=== PATIENT | male | born 1970 | race Caucasian/White ===

== ENCOUNTER 2020-03-12 15:20 | Inpatient (IN) | payer MEDICARE, OTHER ==
[~2020-03-12] VITALS: Ht 157.5 cm; Wt 104.0 kg
[2020-03-13] MEDS ORDERED: DOCUSATE SODIUM 100 MG (COLACE) CAP PO PRN (05:00)
[2020-03-13] MEDS ORDERED: BISACODYL 10 MG SUPP (DULCOLAX) PR PRN (05:00)
[2020-03-13] MEDS ORDERED: MELATONIN 3 MG TABLET PO PRN ×2 (05:00→13:00)
[2020-03-13] MEDS ORDERED: CALCIUM CARBONATE 500 MG (TUMS) TAB.CHEW PO PRN (05:00)
[2020-03-13] MEDS ORDERED: diphenhydrAMINE 25 MG TAB (BENADRYL) PO PRN (05:00)
[2020-03-13] MEDS ORDERED: LOPERAMIDE 2 MG (IMODIUM) TABLET PO PRN (05:00)
[2020-03-13] MEDS ORDERED: ACETAMINOPHEN 500 MG TAB (TYLENOL) PO PRN (05:00)
[2020-03-13] MEDS ORDERED: guaiFENesin/CODEINE (ROBITUSSIN AC) 10ML UDC PO PRN (05:00)
[2020-03-13] MEDS ORDERED: LACTULOSE SYRUP 10GM/15ML (ENULOSE) 30ML UDC PO PRN (05:00)
[2020-03-13] MEDS ORDERED: FLEET ENEMA ADULT 1 EA BTL PR PRN (05:00)
--- NOTE | 2020-03-13 05:03 | Progress Note ---
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 He was admitted to [facility] for observation of stroke- like symptoms after feeling off balance with right facial numbness and R extremities. Symptoms started while he moved his head when taking his medication in the morning. He felt like he was leaning towards the right side and having problems with balance. He denied chest pain, bleeding, problems with falling, loss of consciousness, vomiting, diarrhea, fever, and cough. PTT on admission was low at 21.3s. ct scan showed no acute abnormality. Teleneuro consulted recommending stroke pathway and workup for possible metabolic or infectious abnormalities. No nystagmus noted on exam and neurologist recommended josee- hallpike maneuver. MRI and MRA of the brain showed no acute intracranial findings and chronic small infarct of the occipital lobe. Patient started on aspirin 81mg for treatment. He remained hemodynamically stable over night and remained afebrile. 03/12: Mr. Arana is feeling well but still feeling symptoms of dizziness and facial numbness. He is afebrile and hemodynamically stable. Patient became dizzy during physical exam when leaning forward and turn head. Orthostatic testing was done on his left arm with a 10 and 11 bpm increase in pulse from supine to sitting and standing, with stable blood pressure and respiration. dizziness is exacerbated by turning his head and he tries to keep his head straight to avoid symptoms. He veered to the right side during physical therapy when walking. The josee-hallpike maneuver was performed bilaterally with head rotated 30 degrees, eliciting a fast-beating nystagmus starting 5-7 seconds after supine positioning with exacerbation of dizziness. No nystagmus elicited when the test was repeated to the left and patient did not complain of symptoms. US with doppler of the carotid arteries noted bilateral intimal thickening with no evidence of stenosis, unchanged from prior carotid doppler in 2018. Plan on vestibular rehabilitation and jarrett maneuver when the patient is discharged to acute rehab facility. Labs: Glucose 121>>141. cmp and cbc WNL. covid antigen positive on 01/23/2020. ROS Constitutional-No fever, night sweats, fatigue EYE-no blurred vision, double vision ENT-, no difficulty swallowing, no symptoms of oral candidiasis Lungs-no complaint of respiratory distress, no wheezing CV-no chest pain, palpitation GI-no nausea, vomiting, diarrhea, no abdominal pain -no difficulty voiding, no flank pain MS-no significant edema Remainder of 10 point review of system is negative Objective: BP 132/78 (BP Location: Left arm, Patient Position (BP): Sitting) | Pulse 79 | Temp 97.9 F (36.6 C) (Oral) | Resp 18 | Ht 5' 2" (1.575 m) | Wt 110 kg (242 lb 6.4 oz) | SpO2 97% | BMI 44.34 kg/m The range of BP in the last 24 hours is:BP: (110-152)/(61-99) Intake/Output Summary (Last 24 hours) at 03/12/2020 1520 Last data filed at 03/12/2020 0330 Gross per 24 hour Intake Output 850 ml Net -850 ml Physical Exam Lung-ctab Heart-RRR, No Murmur Abd-BS active, non tender Ext-No edema, strength 5/5 throughout Neuro: postural tremor bilaterally more pronounced on the R, mild dysmetria on FTN more pronounced on the R. + babinski sign bilaterally, +3 L4 deep tendon reflexes bilaterally, +2 dtr c5, c6, and S1 bilaterally.. Reviewed All recent data in "lab, imaging, CV and pathology" section All pertinent notes under the "all notes" section. Current orders, adjustments made as appropriate. Telemetry Assessment: Stroke-like symptoms Current Active Hospital Problem List Active Hospital Problems Diagnosis Stroke-like symptoms Immunocompromised patient Type 2 diabetes mellitus with hyperglycemia, without long-term current use of insulin Benign hypertension with CKD (chronic kidney disease) stage III GERD (gastroesophageal reflux disease) History of TIA (transient ischemic attack) and stroke History of renal transplant Seizure disorder Resolved Hospital Problems No resolved problems to display. Plan: Patient presented to ed with right sided facial numbness, right sided leg and arm numbness consistent with a lacunar syndrome without acute findings on imaging. Hx of cerebrovascular accident in 2007 and hx of face paresthesias. Ct head WO contrast: No acute intracranial / cranial process. Old infarcts. No significant change since the previous studies in November. MRI and MRA on 03/12/2020: No acute intracranial findings. Normal MRA of the brain. Chronic small infarct right occipital lobe. Carotid US with doppler on 03/12/2020: Bilateral intimal thickening without evidence of significant stenosis. Antegrade vertebral blood flow. Unchanged from 2018. Recommend 2 year followup if patient remains asymptomatic. PTT was mildly low at 21.3s on 03/10/20. Patient was evaluted by Tele-neuro on admission and recommended stroke pathway most likely TIA/stroke. Continue aspirin 81mg daily. Restart amlodipine 5mg tonight, following period of permissive hypertension. Follow-up with neurology after discharge from rehabilitation facility. Benign paroxysmal positional vertigo Orthostatic testing on 03/12/2020: Increased from 76 bpm supine to 86 and 87 sitting and standing, with slight change in blood pressure from 123/74 to 119/73 and 127/77. The josee-hallpike maneuver elicited symptoms of dizziness and a fast beating nystagmus that started 5-7s after patient was supine. Test was positive with patient turned to the R and not to the L, consistent with his symptoms. Start meclizine three times daily Physical therapy - try jarrett maneuver to relieve patient's symptoms following meclizine. Recommend vestibular rehabilitation when patient is discharged to acute care rehabilitation facility. Follow-up with neurology. Type 2 diabetes mellitus Blood glucose stable between 117 and 141 today Continue sliding scale insulin Immunocompromise secondary to bilateral renal transplant immunosuppresive therapy Continue tacrolimus twice daily Continue prednisone once daily Continue cellcept twice daily Continue folic acid once daily Continue thiamine once daily Continue biotin once daily Continue multivitamin once daily Hypertension Continue lisinopril once daily Continue amlodipine once daily Seizure disorder Continue keppra twice daily Gastroesophageal reflux disease Continue Protonix once daily Depressive psychosis Continue Abilify once daily Continue Fluoxetine 40mg daily The patient was seen by me on03/12/2020t [id number] Thomas R [id number] 13:20 PM DVT Prophylaxis:Scds. 81mg aspirin. Code Status:Full code Disposition: -Expected Time frame:1 day -Expected Discharge to:Acute care rehabilitation facility -Follow up appointments needed:neurology -Discharge needs:Meclizine Complexity of care is high given comorbidities Face to face encounter 25min Coordinating care with patient, family, nursing staff, consults, SW/CM D/W MEDICAL STUDENT ATTESTATION The patient was seen by myself and a student; the students documentation reflects my exam findings as well as my assessment/plan and has been reviewed with changes/additions made as appropriate. Griselda Valdez MD 03/12/2020 JULIETTE FIERRO DO Mar 13, 2020 05:03
[2020-03-13] MEDS ORDERED: ACETAMINOPHEN 325 MG TABLET PO PRN (11:15)
[2020-03-13] MEDS ORDERED: MULT-1136 PO (11:31)
[2020-03-13] MEDS ORDERED: PROM6.2516 PO (11:31)
[2020-03-13] MEDS ORDERED: AMLO10TA4 PO (11:31)
[2020-03-13] MEDS ORDERED: FLUO40CA12 PO (11:31)
[2020-03-13] MEDS ORDERED: MELA1TAB27 PO (11:31)
[2020-03-13] MEDS ORDERED: NF-MYC250C PO ×2 (11:31)
[2020-03-13] MEDS ORDERED: LEVE100015 PO (11:31)
[2020-03-13] MEDS ORDERED: PIOG15TA9 PO (11:31)
[2020-03-13] MEDS ORDERED: THIA100T80 PO (11:31)
[2020-03-13] MEDS ORDERED: PRED5TAB PO (11:31)
[2020-03-13] MEDS ORDERED: TACR1CAP24 PO (11:31)
[2020-03-13] MEDS ORDERED: LISI-552 PO (11:31)
[2020-03-13] MEDS ORDERED: ASPI-1238 PO (11:31)
[2020-03-13] MEDS ORDERED: PANT40TA2 PO (11:31)
[2020-03-13] MEDS ORDERED: ARIP10TA10 PO (11:31)
[2020-03-13] MEDS ORDERED: MECL-149 PO (11:31)
[2020-03-13] MEDS ORDERED: CETI10TA49 PO (11:31)
[2020-03-13] MEDS ORDERED: FLUT9.9S NS (11:34)
[2020-03-13] MEDS ORDERED: CALC600T80 PO (11:41)
--- NOTE | 2020-03-13 11:54 | Physical Therapy Evaluation ---
PT Evaluation-General Medical Diagnosis Admission Date Mar 13, 2020 at 10:46 Medical Diagnosis: neuro deficits Onset Date: Mar 13, 2020 Therapy Diagnosis Therapy Diagnosis: weakness; abn gait Precautions Precautions/Isolations: Seizure, Standard Precautions Referral Physician: Digna Reason for Referral: Evaluation/Treatment Medical History Pertinent Medical History: DM, HTN Additional Medical History legally blind, kidney transplant 2008; hemorrhagic CVA 2007; disabled. Current History Pt admitted to [facility] on 03/11/20 with stroke like symptoms. Transferred to this facility for continued skilled therapy services. Reviewed History: Yes Social History Home: Multilevel Current Living Status: Spouse (and 2 children 19 and 20 y./o) Entry Into Home: Stairs With Railing (4) PT Steps Into Home: 4 PT Steps Inside Home: 12 Other Obstacles: handrail at steps Prior Prior Level of Function SCALE: Activities may be completed with or without assistive devices. 8-Cjnrkcuvcx-dxvlgjg completes the activity by him/herself with no assistance from a helper. 5-Set-up or Clean-up Assistance-helper sets up or cleans up; patient completes activity. [place] assists only prior to or following the activity. 4-Supervision or Touching Assistance-helper provides verbal cues and/or to uching/steadying and/or contact guard assistance as patient completes activity. Assistance may be provided throughout the activity or intermittently. 3-Partial/Moderate Assistance-helper does LESS THAN HALF the effort. [place] lifts, holds or supports trunk or limbs, but provides less than half the effort. 2-Substantial/Maximal Assistance-helper does MORE THAN HALF the effort. [place] lifts or holds trunk or limbs and provides more than half the effort. 7-Zrekigjes-cicjqm does ALL the effort. Patient does none of the effort to complete the activity. Or, the assistance of 2 or more helpers is required for the patient to complete the activity. If activity was not attempted, code reason: 7-Patient Refused. 9-Not Applicable-not attempted and the patient did not perform the activity before the current illness, exacerbation or injury. 10-Not Attempted due to Environmental Limitations-(lack of equipment, weather restraints, etc.). 88-Not Attempted due to Medical Conditions or Safety Concerns. Bed Mobility: 6 Transfers (B,C,W/C): 6 Gait: 6 Stairs: 6 Indoor Mobility (Ambulation): Independent Stairs: Independent pt reports he walks outdoor alot and often walks to his parent's house which is a mile away. indep with self care and mobiltiy; does not drive due to visual deficits. he is on disability and is unable to work. PT Evaluation-Current Subjective Agrees to PT. Reports he would like to get back to walking without an AD. Anxious to get stronger and go home. Reports intermittent dizziness which he reports he was told it was a vestibular issue. Lives at home with his and 2 children. His is a teacher and his kids are in college. His parents live nearby. He reports he is active in congregational activities. Pain Numeric Pain Scale: 0-No Pain Objective Patient Orientation: Person, Place, Time, Situation ROM/Strength ROM Lower Extremities WNL Strength Lower Extremities Grossly 4/5 throghout Integumentary/Posture Integumentary intact Bowel Incontinence: No Bladder Incontinence: No Posture normal and symmetrical Neuromuscular (Tone, Coordination, Reflexes) intact and functional Sensory Vision: Blind Legally Hearing: Functional Hand Dominance: Right Sensation Right Lower Extremit: Intact Sensation Left Lower Extremity: Intact Transfers Roll Left & Right (QC): 4 Sit to Lying (QC): 4 Lying to Sitting/Side of Bed(Q: 4 Sit to Stand (QC): 4 Chair/Spj-mf-Ipvud Xfer(QC): 4 Toilet Transfer (QC): 4 Car Transfer (QC): 4 SBA with all functional tranfers for safety and intermittent cues. Gait Does the Patient Walk?: Yes Mode of Locomotion: Walk Anticipated Mode of Locomotion: Walk Walk 10 feet (QC): 4 Walk 50 ft with 2 Turns(QC): 4 Walk 150 ft (QC): 4 Walking 10ft/uneven surface-QC: 4 Distance: 200 ft; 300 ft Gait Assistive Device: FWW Comments/Gait Description Slightly unsteady with turning; no larisa LOB noted. Normal step length and normal heel strike/toe off Wheelchair Training Does the Pt Use a Wheelchair?: No Wheel 50 ft with 2 turns (QC): 9 Wheel 150 ft (QC): 9 Stairs 1 Step (curb) (QC): 3 4 Steps (QC): 3 12 Steps (QC): 88 Balance Sitting Static: Normal Sitting Dynamic: Normal Standing Static: Fair Standing Dynamic: Fair Picking up an Object (QC): 3 Treatment Functional transfer on multiple surfaces; functional gait training; toileted. acclimated to the unit and walked throughout with several turns and standing. Assessment/Needs Post acute hosptial stay in which he was admitted with stroke like symptoms. He presents with slight strength and balance deficits that impair functional transfers and gait as well as decreased functional act tolerance. He is reporting intermittent dizziness that may be vestibular in nature. He will benefit from skilled PT to address strength and balance to enhance functional mobiltiy; in addition, he well benefit from progression of gait to walking without an AD. Rehab Potential: Good PT Short Term Goals Short Term Goals Time Frame: Mar 20, 2020 Sit to lyin Lying to sitting on side of be: 5 Sit to stand: 5 Walk 150 feet: 4 PT Orderly Goals Chcf Goals PT Orderly Goals Time Frame: Mar 27, 2020 Roll Left & Right (QC): 6 Sit to Lying (QC): 6 Lying-Sitting on Side/Bed(QC): 6 Sit to Stand (QC): 6 Chair/Acl-qh-Asntn Xfer(QC): 6 Toilet Transfer (QC): 6 Car Transfer (QC): 6 Does the Patient Walk: Yes Walk 10 feet (QC): 6 Walk 50ft with 2 Turns (QC): 6 Walk 150 ft (QC): 6 Walking 10ft on Uneven Surface: 6 1 Step (curb) (QC): 6 4 Steps (QC): 6 12 Steps (QC): 6 Picking up an Object (QC): 5 Does the Pt use WC or Scooter?: No Wheel 50 feet with 2 turns (QC: 9 Wheel 150 feet: 9 PT Plan Problem List Problem List: Activity Tolerance, Functional Strength, Safety, Balance, Gait, Transfer, Bed Mobility Treatment/Plan Treatment Plan: Continue Plan of Care Treatment Plan: Bed Mobility, Education, Functional Activity Hailey, Functional Strength, Gait, Safety, Therapeutic Exercise, Transfers Treatment Duration: Mar 27, 2020 Frequency: At least 5 of 7 days/Wk (IRF) Estimated Hrs Per Day: 1.5 hours per day Patient and/or Family Agrees t: Yes Safety Risks/Education Patient Education: Gait Training, Transfer Techniques Teaching Recipient: Patient Teaching Methods: Demonstration, Discussion Response to Teaching: Reinforcement Needed Time/GCodes Time In: 1040 Time Out: 1135 Total Billed Treatment Time: 55 Total Billed Treatment visit EVM 15 FA 40 ALDEN SANTOS PT Mar 13, 2020 11:54
[2020-03-13] MEDS ORDERED: SEMA0.25 SQ (11:58)
[2020-03-13] MEDS ORDERED: ENOXAPARIN 40 MG/0.4 ML (LOVENOX) SYR SC SCH (12:00)
[2020-03-13] MEDS ORDERED: FOLI1TAB33 PO (12:02)
[2020-03-13] MEDS ORDERED: AMLO5TAB4 PO (12:02)
--- NOTE | 2020-03-13 12:17 | PM&R Post Admission Assessment ---
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 for IRF due to severe vertigo and unable to ambulate without falling. CVA w/u ensued after admitted to [facility] and vertigo was the final diagnosis. Patient usually ambulates without use of assistive devices. 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 I have reviewed [facility] records and home meds and have restarted all of his anti-rejection meds. BM this am. Urinating well. I have provided information materials on vertigo and the otolith dysfunction for him to research. Lovenox not given due to hemorrhagic CVA. 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, seizure disorder, bilateral renal transplant, immunocompromise, chronic tremors (mostly R side), HTN, diabetes mellitus, hyperlipidemia, obstructive sleep apnea on cpap and covid-19 pneumonia on 01/23/2020 Past Ocdkvos-Gzbbys-Xlmhqp Hx Past Med/Social Hx: Reviewed Nursing Past Med/Soc Hx, Reviewed and Corrections made Patient Social History Marrital Status: Employed/Student: retired Alcohol Use: Denies Use Smoking Status: Never a Smoker Past Medical History Surgeries: Kidney Transplant (bilateral [facility]) Respiratory: Sleep Apnea Currently Using CPAP: Yes Cardiac: High Cholesterol, Hypertension Neurological: Seizure Disorder, Stroke (hemorrhagic 2007) tremor Genitourinary: Renal Failure Endocrine: Diabetes, Non-Insulin dep Prior Level of Function Bed Mobility: 6 Transfers: 6 Gait: 6 Stairs: 6 Indoor Mobility (Ambulation): Independent Stairs: Independent Current Level of Fuctioning Roll Left to Right: 4 Sit to Lyin Lying to Sitting/Side of Bed: 4 Sit to Stand: 4 Chair/Jkh-gn-Vifkz Xfer: 4 Car Transfer: 4 Does the Patient Walk: Yes Mode of Locomotion: Walk Anticipated Mode of Locomotion: Walk Walk 10 feet: 4 Walk 50 ft with 2 Turns: 4 Walk 150 ft: 4 Walking 10ft on uneven surface: 4 Gait Assistive Device: FWW Does the Pt Use a Wheelchair: No Wheel 50 ft with 2 turns: 9 Wheel 150 ft: 9 1 Step (curb): 3 4 Steps: 3 12 Steps: 88 Picking up an Object: 3 PM&R Allergy/Meds/Data Review Allergies Coded Allergies: Iodinated Contrast Media (Verified Allergy, Unknown, 03/13/20) Qgjzvxg-Jre-Qbl Reductase Inhibitor (Verified Allergy, Unknown, 03/13/20) Sulfa (Sulfonamide Antibiotics) (Verified Allergy, Unknown, 03/13/20) adhesive (Verified Allergy, Unknown, 03/13/20) aspirin (Verified Allergy, Unknown, 03/13/20) benztropine (Verified Allergy, Unknown, 03/13/20) cephalexin (Verified Allergy, Unknown, 03/13/20) clarithromycin (Verified Allergy, Unknown, 03/13/20) colchicine (Verified Allergy, Unknown, 03/13/20) diazepam (Verified Allergy, Unknown, 03/13/20) dipyridamole (Verified Allergy, Unknown, 03/13/20) divalproex sodium (Verified Allergy, Unknown, 03/13/20) lamotrigine (Verified Allergy, Unknown, 03/13/20) lorazepam (Verified Allergy, Unknown, 03/13/20) olanzapine (Verified Allergy, Unknown, 03/13/20) ondansetron (Verified Allergy, Unknown, 03/13/20) phenytoin (Verified Allergy, Unknown, 03/13/20) quetiapine (Verified Allergy, Unknown, 03/13/20) Home Medications Scheduled Amlodipine Besylate (Norvasc), 5 MG PO HS, (Reported) Aripiprazole (Abilify), 10 MG PO DAILY, (Reported) Aspirin (Aspirin EC), 81 MG PO DAILY, (Reported) Calcium Carbonate (Calcium Carbonate), 600 MG PO DAILY, (Reported) Cetirizine HCl (Zyrtec), 10 MG PO DAILY, (Reported) Fluoxetine HCl (Prozac), 40 MG PO DAILY, (Reported) Fluticasone Propionate (Flonase Allergy Relief), 2 SPRAYS NS DAILY, (Reported) Folic Acid (Folic Acid), 1 MG PO HS, (Reported) Levetiracetam (Keppra), 2,000 MG PO BID, (Reported) Lisinopril (Lisinopril), 20 MG PO DAILY, (Reported) Multivitamin (Multivitamin), 1 EACH PO DAILY, (Reported) Mycophenolate Mofetil (Cellcept), 500 MG PO DAILY, (Reported) Mycophenolate Mofetil (Cellcept), 250 MG PO HS, (Reported) Pantoprazole Sodium (Protonix), 40 MG PO DAILY, (Reported) Pioglitazone HCl (Actos), 15 MG PO DAILY, (Reported) Prednisone (Prednisone), 5 MG PO DAILY, (Reported) Tacrolimus (Prograf), 2 MG PO BID, (Reported) Thiamine HCl (Vitamin B-1), 100 MG PO DAILY, (Reported) [Ozempic 2MG/1.5ML], 0.5 MG SQ SATURDAYS AT 1030, (Reported) Scheduled PRN Meclizine HCl (Meclizine HCl), 25 MG PO TID PRN for DIZZINESS, (Reported) Melatonin/Pyridoxine HCl (B6) (Melatonin 3 mg Tablet), 2 EACH PO HS PRN for INSOMNIA, (Reported) Promethazine HCl (Promethazine HCl), 6.25 MG PO Q6H PRN for NAUSEA-1ST LINE, (Reported) Discontinued Medications Amlodipine Besylate (Norvasc), 10 MG PO HS, (Reported) Discontinued Reason: No Longer Taking Semaglutide (Ozempic), 0.5 MG SQ SUNDAY AT 1030, (Reported) Discontinued Reason: No Longer Taking Current Medications Current Medications Reviewed Review of Systems Constitutional: see HPI, dizziness, weakness EENTM: no symptoms reported Respiratory: no symptoms reported Cardiovascular: no symptoms reported Gastrointestinal: no symptoms reported Genitourinary: no symptoms reported Musculoskeletal: no symptoms reported Skin: no symptoms reported Psychiatric/Neurological: No Symptoms Reported All Other Systems Reviewed Negative Unless Noted: Yes Physical Exam Physical Exam Vital Signs Capillary Refill : Height, Weight, BMI Height: '" Weight: lbs. oz. kg; 42.28 BMI Method: General Appearance: No Apparent Distress, WD/WN, Chronically ill, Obese Eyes: Bilateral Eye Normal Inspection, Bilateral Eye PERRL HEENT: PERRL/EOMI, Normal ENT Inspection, Pharynx Normal Neck: Full Range of Motion, Normal Inspection, Non Tender, Supple, Carotid Bruit Respiratory: Chest Non Tender, Lungs Clear, Normal Breath Sounds, No Accessory Muscle Use, No Respiratory Distress Cardiovascular: Regular Rate, Rhythm, No Edema, No Gallop, No JVD, No Murmur, Normal Peripheral Pulses Gastrointestinal: Normal Bowel Sounds, No Organomegaly, No Pulsatile Mass, Non Tender, Soft Back: Normal Inspection, No CVA Tenderness, No Vertebral Tenderness Extremity: Normal Capillary Refill, Normal Inspection, Normal Range of Motion, Non Tender, No Calf Tenderness, No Pedal Edema Neurologic/Psychiatric: Alert, Oriented x3, No Motor/Sensory Deficits, Normal Mood/Affect, physical education aide II-XII Norm as Tested, Abnormal Cerebellar Tests, Abnormal Gait, Motor Weakness (generalized weakness 4/5 extremities) Skin: Normal Color, Warm/Dry Lymphatic: No Adenopathy PM&R Medical Assessment & Plan REHAB/MEDICAL ASSESSMENT AND PLAN: REHAB IMPAIRMENT GROUP: Neuro deficits with vertigo in prior hemorrhagic CVA patient ETIOLOGIC DIAGNOSIS: Neuro deficits with vertigo in prior hemorrhagic CVA patient The comorbidities that impact the patients function and/or functional outcome by: immunosuppression, post COVID last month, severe vertigo, prior hemorrhagic CVA 2007, DM, obesity REHAB PLAN: The patient is being admitted to our comprehensive inpatient rehabilitation facility and can tolerate the intensity of service consisting of at least: 180 minutes of therapy a day, 5 out of 7 days a week Rehab treatment will consist of: PT OT will focus on regaining function and assist in Brett maneuver in order to help dysfunctional otoliths and help with the use of assistive devices to decrease fall risk The patient/family has a good understanding of our discharge process and will benefit from an interdisciplinary inpatient rehabilitation program. The patient has potential to make improvement and is in need of at least two of the following multidisciplinary therapies including but not limited to physical, occupational, speech, and prosthetics and orthotics. Additionally the patient will need services from respiratory, nutritional services, wound care, psychology, etc. (Customize this to each patient). Given the patients complex condition and risk of further medical complications, rehabilitation services cannot be safely or effectively provided at a lower level of care such as a senior living facility. BARRIERS TO DISCHARGE: Obesity and major fall risk with prior CVA ESTIMATED LOS: 7 days DISPOSITION: Home RELEVANT CHANGES SINCE PREADMISSION SCREENING: I have compared the patients medical and functional status at the time of the preadmission screening and there are: no changes PROGNOSIS: Good REHABILITATION GOALS: 1.PT OT will focus on regaining function and assist in Brett maneuver in order to help dysfunctional otoliths and help with the use of assistive devices to decrease fall risk All the above goals were reviewed with the patient and he/she is in agreement. By signing this document, I acknowledge that I have personally performed a full physical examination on this patient within 24 hours of admission to this inpatient rehabilitation facility and have determined the patient to be able to tolerate the above course of treatment at an intensive level for a reasonable period of time. I will be completing a detailed individualized Plan of Care for this patient by day #4 of the patients stay based upon the Preadmission Screen, the Post-Admission Evaluation, and the therapy evaluations. Admission Dx/Comorbidities: (1) Neurocognitive deficits ICD Codes: R29.818 - Other symptoms and signs involving the nervous system; R41.89 - Other symptoms and signs involving cognitive functions and awareness (2) ZEB on CPAP ICD Codes: G47.33 - Obstructive sleep apnea (adult) (pediatric); Z99.89 - Dependence on other enabling machines and devices (3) Renal transplant recipient ICD Codes: Z94.0 - Kidney transplant status (4) Immunosuppressed status ICD Codes: D84.9 - Immunodeficiency, unspecified (5) Glomerular disease ICD Codes: N05.9 - Unspecified nephritic syndrome with unspecified morphologic changes (6) Obesity ICD Codes: E66.9 - Obesity, unspecified (7) Diabetes ICD Codes: E11.9 - Type 2 diabetes mellitus without complications (8) Hypertension ICD Codes: I10 - Essential (primary) hypertension (9) Hyperlipemia ICD Codes: E78.5 - Hyperlipidemia, unspecified (10) History of hemorrhagic stroke with residual hemiparesis ICD Codes: I69.359 - Hemiplegia and hemiparesis following cerebral infarction affecting unspecified side (11) Tremor ICD Codes: R25.1 - Tremor, unspecified (12) Post-acute COVID-19 syndrome ICD Codes: B94.8 - Sequelae of other specified infectious and parasitic diseases (13) Seizure disorder ICD Codes: G40.909 - Epilepsy, unspecified, not intractable, without status epilepticus Assessment/Plan Assessment and Plan Assess & Plan/Chief Complaint Assessment: Severe disabling neurological deficit with severe vertigo 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
[2020-03-13] MEDS ORDERED: OZEMPIC 2MG/1.5ML SQ (12:22)
[2020-03-13] MEDS ORDERED: PROMETHAZINE 6.25 MG/5 ML SYRUP (PHENERGAN) 5 ML UDC PO PRN (12:30)
[2020-03-13] MEDS ORDERED: inSUlin ASPART (NovoLOG) 1 UNIT/0.01 ML (CHARGE PER UNIT) SC PRN (12:30)
[2020-03-13] MEDS: DOCUSATE SODIUM 100 MG (COLACE) CAP PO SCH ×2 (12:56→20:44)
[2020-03-13] MEDS: polyethylene glycoL POWDER 17 GM (MIRALAX) PACK PO SCH ×2 (12:56→20:44)
[2020-03-13] MEDS: SENNA W/DOCUSATE (SENOKOT S) TABLET PO SCH ×2 (12:57→20:44)
[2020-03-13] MEDS ORDERED: PATIENT MAY USE OWN MEDS, ALL MC SCH (13:15)
[2020-03-13 17:43] VITALS: BP 143/83
[2020-03-13] MEDS: FOLIC ACID 1 MG TAB PO SCH (20:49)
[2020-03-13] MEDS: MECLIZINE 25 MG (ANTIVERT) TAB PO PRN (20:49)
[2020-03-13] MEDS: LEVETIRACETAM 1,000 MG (KEPPRA) TABLET PO SCH (20:49)
[2020-03-13] MEDS: amLODIPine 5 MG (NORVASC) TAB PO SCH (20:49)
[2020-03-13] MEDS: MAGNESIUM OXIDE (MAG-OX)400 MG TAB PO SCH (20:49)
[2020-03-13] MEDS: MYCOPHENOLATE 250 MG CAPSULE PO SCH (20:50)
[2020-03-13] MEDS ORDERED: TACROLIMUS 1 MG (PROGRAF) CAP NON-FORMULARY PO SCH (21:00)
[2020-03-14] MEDS: MECLIZINE 25 MG (ANTIVERT) TAB PO PRN ×2 (04:49→15:23)
[2020-03-14 05:02] VITALS: BP 122/85
[2020-03-14 05:41] LABS: BASOPHILS % (AUTO) 0 % (0-10); EOSINOPHILS # (AUTO) 0.1 10^3/uL (0.0-0.3); EOSINOPHILS % (AUTO) 1 % (0-10); HEMATOCRIT 43 % (40-54); HEMOGLOBIN 14.1 g/dL (13.3-17.7); LYMPHOCYTES # (AUTO) 3.1 10^3/uL (1.0-4.0); LYMPHOCYTES % (AUTO) 40 % (12-44); MEAN CORPUSCULAR HEMOGLOBIN 28 pg (25-34); MEAN CORPUSCULAR HGB CONC 33 g/dL (32-36); MEAN CORPUSCULAR VOLUME 84 fL (80-99); MEAN PLATELET VOLUME 9.9 fL (9.0-12.2); MONOCYTES # (AUTO) 0.6 10^3/uL (0.0-1.0); MONOCYTES % (AUTO) 8 % (0-12); NEUTROPHILS # (AUTO) 3.9 10^3/uL (1.8-7.8); NEUTROPHILS % (AUTO) 51 % (42-75); PLATELET COUNT 226 10^3/uL (130-400); WHITE BLOOD COUNT 7.7 10^3/uL (4.3-11.0)
[2020-03-14 05:51] LABS: ALBUMIN 4.2 GM/DL (3.2-4.5); CHLORIDE 105 MMOL/L (98-107); POTASSIUM 3.9 MMOL/L (3.6-5.0); SODIUM 138 MMOL/L (135-145)
[2020-03-14 05:52] LABS: CALCIUM 9.4 MG/DL (8.5-10.1)
[2020-03-14 05:53] LABS: GLUCOSE 118 MG/DL (70-105); TOTAL PROTEIN 6.7 GM/DL (6.4-8.2)
[2020-03-14 05:54] LABS: CARBON DIOXIDE 22 MMOL/L (21-32)
[2020-03-14 05:55] LABS: BILIRUBIN,TOTAL 0.6 MG/DL (0.1-1.0)
[2020-03-14 05:57] LABS: ALKALINE PHOSPHATASE 97 U/L (40-136); CREATININE SERUM 1.16 MG/DL (0.60-1.30); GFR ESTIMATED > 60
[2020-03-14 05:58] LABS: BUN/CREATININE RATIO 11
[2020-03-14 06:00] LABS: ALANINE AMINOTRANSFERASE 29 U/L (0-55)
[2020-03-14] MEDS: MULTIVIT W/MINERALS TAB (THERAGRAN M) PO SCH (06:26)
[2020-03-14] MEDS: PIOGLITAZONE 30MG (ACTOS) TAB PO SCH (06:26)
[2020-03-14] MEDS: TACROLIMUS 1 MG (PROGRAF) CAP NON-FORMULARY PO SCH ×2 (08:18→21:26)
[2020-03-14] MEDS: FLUTICASONE NASAL SPRAY (FLONASE) 16 GM BTL NS SCH (08:18)
[2020-03-14] MEDS: MYCOPHENOLATE 250 MG CAPSULE PO SCH ×2 (08:19→21:27)
[2020-03-14] MEDS: ASPIRIN E.C. 81 MG (ECOTRIN) TAB PO SCH (08:20)
[2020-03-14] MEDS: LEVETIRACETAM 1,000 MG (KEPPRA) TABLET PO SCH ×2 (08:20→21:26)
[2020-03-14] MEDS: FLUoxetine HCL 20 MG (PROzac) CAP PO SCH (08:20)
[2020-03-14] MEDS: predniSONE 5 MG TAB PO SCH (08:20)
[2020-03-14] MEDS: MAGNESIUM OXIDE (MAG-OX)400 MG TAB PO SCH ×2 (08:20→21:25)
[2020-03-14] MEDS: LORATADINE (CLARITIN) 10 MG TAB PO SCH (08:20)
[2020-03-14] MEDS: CALCIUM CARBONATE 600 MG (CALCARB) TAB PO SCH (08:21)
[2020-03-14] MEDS: THIAMINE 100 MG (VITAMIN B-1) TAB PO SCH (08:21)
[2020-03-14] MEDS: PANTOPRAZOLE 40 MG (PROTONIX) TAB PO SCH (08:21)
[2020-03-14] MEDS: lisINopril 20 MG (PRINIVIL) TABLET PO SCH (08:21)
[2020-03-14] MEDS ORDERED: FOLIC ACID 1 MG TAB PO SCH (09:00)
[2020-03-14] MEDS ORDERED: [UNRECOGNIZED DRUG - REMARK] NS SCH (09:00)
[2020-03-14] MEDS ORDERED: NON-FORMULARY MEDICATION 1 EA EA (Cetirizine HCl (Zyrtec) 10 MG) PO SCH (09:00)
[2020-03-14] MEDS ORDERED: PIOGLITAZONE HCL 15 MG PO SCH (09:00)
[2020-03-14] MEDS ORDERED: MULTIVITAMINS LIQUID 15 ML UDC PO SCH (09:00)
[2020-03-14] MEDS ORDERED: NON-FORMULARY MEDICATION 1 EA EA (Multivitamin 1 EACH) PO SCH (09:00)
[2020-03-14] MEDS ORDERED: NON-FORMULARY MEDICATION 1 EA EA (Fluoxetine HCl (Prozac) 40 MG) PO SCH (09:00)
[2020-03-14] MEDS: SENNA W/DOCUSATE (SENOKOT S) TABLET PO SCH ×2 (09:10→21:26)
[2020-03-14] MEDS: DOCUSATE SODIUM 100 MG (COLACE) CAP PO SCH ×2 (09:10→21:26)
[2020-03-14] MEDS: polyethylene glycoL POWDER 17 GM (MIRALAX) PACK PO SCH ×2 (09:10→21:25)
--- NOTE | 2020-03-14 11:42 | PM&R Progress Note ---
Subjective HPI/CC On Admission Date Seen by Provider: Mar 14, 2020 Time Seen by Provider: 11:45 Subjective/Events-last exam 03/14/20: Patient doing well Labs normal Vertigo still occurs Accuchecks reviewed BM+ Nystagmus noted when lying down Review of Systems General: Fatigue, Malaise Neurological: Weakness, Incoordination Objective Exam Vital Signs Vital Signs Date Time Temp Pulse Resp B/P (MAP) Pulse Ox O2 Delivery O2 Flow Rate FiO2 03/14/20 17:45 36.5 81 16 124/75 (91) 93 Room Air Capillary Refill : General Appearance: No Apparent Distress, WD/WN, Chronically ill, Obese HEENT: PERRL/EOMI, Normal ENT Inspection, Pharynx Normal Neck: Full Range of Motion, Normal Inspection, Non Tender, Supple, Carotid Bruit Respiratory: Chest Non Tender, Lungs Clear, Normal Breath Sounds, No Accessory Muscle Use, No Respiratory Distress Cardiovascular: Regular Rate, Rhythm, No Edema, No Gallop, No JVD, No Murmur, Normal Peripheral Pulses Gastrointestinal: Normal Bowel Sounds, No Organomegaly, No Pulsatile Mass, Non Tender, Soft Back: Normal Inspection, No CVA Tenderness, No Vertebral Tenderness Extremity: Normal Capillary Refill, Normal Inspection, Normal Range of Motion, Non Tender, No Calf Tenderness, No Pedal Edema Neurologic/Psychiatric: Alert, Oriented x3, No Motor/Sensory Deficits, Normal Mood/Affect, wigs salesperson II-XII Norm as Tested, Abnormal Cerebellar Tests, Abnormal Gait, Motor Weakness (generalized weakness 4/5 extremities) Skin: Normal Color, Warm/Dry Lymphatic: No Adenopathy Results/Procedures Lab Laboratory Tests 03/14/20 05:32 Patient resulted labs reviewed. FIM Transfers Therapy Code Descriptions/Definitions Functional [place] Measure: 0=Not Assessed/NA 4=Minimal Assistance 1=Total Assistance 5=Supervision or Setup 2=Maximal Assistance 6=Modified [place] 3=Moderate Assistance 7=Complete IndependenceSCALE: Activities may be completed with or without assistive devices. 0-Iblizpoikz-sxuwsrb completes the activity by him/herself with no assistance from a helper. 5-Set-up or Clean-up Assistance-helper sets up or cleans up; patient completes activity. Mathews assists only prior to or following the activity. 4-Supervision or Touching Assistance-helper provides verbal cues and/or touching/steadying and/or contact guard assistance as patient completes activity. Assistance may be provided throughout the activity or intermittently. 3-Partial/Moderate Assistance-helper does LESS THAN HALF the effort. Mathews lifts, holds or supports trunk or limbs, but provides less than half the effort. 2-Substantial/Maximal Assistance-helper does MORE THAN HALF the effort. Mathews lifts or holds trunk or limbs and provides more than half the effort. 0-Kbpywodua-wsuyfa does ALL the effort. Patient does none of the effort to complete the activity. Or, the assistance of 2 or more helpers is required for the patient to complete the activity. If activity was not attempted, code reason: 7-Patient Refused. 9-Not Applicable-not attempted and the patient did not perform the activity before the current illness, exacerbation or injury. 10-Not Attempted due to Environmental Limitations-(lack of equipment, weather restraints, etc.). 88-Not Attempted due to Medical Conditions or Safety Concerns. Roll Left to Right (QC): 4 Sit to Lying (QC): 4 Sit to Stand (QC): 4 Chair/Ijh-jt-Dnwql Xfer(QC): 4 Car Transfer (QC): 4 Gait Training Does the Patient Walk?: Yes Walk 10 feet (QC): 4 Walk 50 ft with 2 Turns(QC): 4 Walk 150 ft (QC): 4 Walking 10ft/uneven surface-QC: 4 Gait Assistive Device: FWW Wheelchair Training Does the Pt Use a Wheelchair?: No Wheel 50 ft with 2 turns (QC): 9 Wheel 150 ft (QC): 9 Stair Training 1 Step (curb) (QC): 3 4 Steps (QC): 3 12 Steps (QC): 88 Balance Picking up an Object (QC): 3 Assessment/Plan Assessment and Plan Assess & Plan/Chief Complaint Assessment: Severe disabling neurological deficit with severe vertigo Stroke/intracranial hemorrhage in 2008 (mild residual R sided weakness) with 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 Seizure disorder Bilateral renal transplant Immunocompromise Chronic tremors (mostly R side) HTN Diabetes mellitus Hyperlipidemia Obstructive sleep apnea on cpap COVID-19 pneumonia on 01/23/2020 Plan: IRF protocol Home meds DM checks Check labs Fall risk 03/14/20: Monitor closely Monitor glucometer checks Vertigo management per PT (1) Neurocognitive deficits (2) ZEB on CPAP (3) Renal transplant recipient (4) Immunosuppressed status (5) Glomerular disease (6) Obesity (7) Diabetes (8) Hypertension (9) Hyperlipemia (10) History of hemorrhagic stroke with residual hemiparesis (11) Tremor (12) Post-acute COVID-19 syndrome (13) Seizure disorder JULIETTE FIERRO DO Mar 14, 2020 11:42
--- NOTE | 2020-03-14 11:42 | Individualized Plan of Care ---
Individualized Plan of Care Rehab Nursing IPOC Order Admission Date Mar 13, 2020 at 10:46 Current Orders Orders Admission Order(Inpt,Obs,Sdc) (03/13/20 04:51) Vital Signs: Per Unit Policy ( 08,16,00 (03/13/20 04:51) Federico [place] (03/13/20 04:51) Sequential Compression Device Q4H (03/13/20 04:51) Platform Material Handler Manager-Inpt Rehab Con (03/13/20 04:51) Rehab Nursing Orders-Ipoc (03/13/20 04:51) Physical Therapy Rehab Orders (03/13/20 04:51) Occupational Therapy Rehab Ord (03/13/20 04:51) Speech Therapy Rehab Orders (03/13/20 04:51) Cbc With Automated Diff (03/14/20 06:00) Comprehensive Metabolic Panel (03/14/20 06:00) General/Regular (03/13/20 Breakfast) Intake & Output 06,14,22 (03/13/20 04:51) Precautions (Aru) (03/13/20 04:51) Seizure Precautions (03/13/20 04:51) Rehab-Intensity Of Therapy (03/13/20 04:51) Initiate Admission Nursing Pro .admission (03/13/20 04:51) Acetaminophen Tablet (Tylenol Tablet) (03/13/20 05:00) Calcium Carbonate Chew Tablet (Antacid C (03/13/20 05:00) Diphenhydramine Tablet (Benadryl Tablet) (03/13/20 05:00) Docusate Sodium Capsule (Colace Capsule) (03/13/20 09:00) Docusate Sodium Capsule (Colace Capsule) (03/13/20 05:00) Bisacodyl Suppository (Dulcolax Supposit (03/13/20 05:00) Lactulose Oral Solution (Enulose Oral So (03/13/20 05:00) Na Phos/Na Biphos Enema (Fleet Enema Bret (03/13/20 05:00) Guaifenesin/Codeine Syrup (Robitussin Ac (03/13/20 05:00) Loperamide Tablet (Imodium Tablet) (03/13/20 05:00) Melatonin Tablet (Melatonin Tablet) (03/13/20 05:00) Polyethylene Glycol Powder Pkt (Miralax (03/13/20 09:00) Senna S Tablet (Senokot S Tablet) (03/13/20 09:00) Code/Resuscitation (03/13/20 04:51) Initiate Admission Nursing Pro .admission (03/13/20 04:51) Admission Arrival Bed Request (03/13/20 10:46) Acetaminophen Tablet/Caplet (Tylenol T (03/13/20 11:15) Patient Visit (03/13/20 ) Pt Eval Moderate Complexity (03/13/20 ) Functional Activities, Ea 15 (03/13/20 ) Amlodipine Tablet (Norvasc Tablet) (03/13/20 21:00) Aripiprazole Tablet (Abilify Tablet) (03/14/20 09:00) Aspirin Enteric Coated Tablet (Ecotrin T (03/14/20 09:00) Calcium Carbonate Tablet (Calcarb 600 Ta (03/14/20 09:00) Folic Acid Tablet (Folic Acid Tablet) (03/13/20 21:00) Levetiracetam Tablet (Keppra Tablet) (03/13/20 21:00) Lisinopril Tablet (Zestril Tablet) (03/14/20 09:00) Meclizine Tablet (Antivert Tablet) (03/13/20 12:30) Pantoprazole Tablet (Protonix Tablet) (03/14/20 09:00) Prednisone Tablet (Deltasone Tablet) (03/14/20 08:00) Promethazine Syrup (Phenergan Syrup) (03/13/20 12:30) Tacrolimus (Non-Formulary) (Prograf (Non (03/13/20 21:00) Thiamine Tablet (Vitamin B-1 Tablet) (03/14/20 09:00) (Nf) Cetirizine Hcl (Zyrtec) (03/14/20 09:00) (Nf) Fluoxetine Hcl (Prozac) (03/14/20 09:00) (Nf) Fluticasone Propionate (Flonase All (03/14/20 09:00) (Nf) Melatonin/Pyridoxine Hcl (B6) (Jalyn (03/13/20 12:30) (Nf) Multivitamin (03/14/20 09:00) (Nf) Mycophenolate Mofetil (Cellcept) (03/13/20 21:00) (Nf) Mycophenolate Mofetil (Cellcept) (03/14/20 09:00) (Nf) Pioglitazone Hcl (Actos) (03/14/20 09:00) Magnesium Oxide Tablet (Mag Ox Tablet) (03/13/20 21:00) Multivitamins Liquid (Geritol Liquid) (03/14/20 09:00) Folic Acid Tablet (Folic Acid Tablet) (03/14/20 09:00) Accucheck Bid DBID (03/13/20 12:27) Insulin Aspart (Novolog) (Novolog (Charg (03/13/20 12:30) Follow-Up Appointment (03/13/20 12:23) Loratadine Tablet (Claritin Tablet) (03/14/20 09:00) Fluoxetine Capsule (Prozac Capsule) (03/14/20 09:00) Fluticasone Nasal Agate (Flonase Nasal S (03/14/20 09:00) Pioglitazone Tablet (Actos Tablet) (03/14/20 07:00) Melatonin Tablet (Melatonin Tablet) (03/13/20 13:00) Therapeutic Multivitamin Tab (Vitamins, (03/14/20 07:00) Patient May Use Own Meds, All (Patient M (03/13/20 13:15) Vte Contraindication (03/14/20 06:14) Tacrolimus (Non-Formulary) (Prograf (Non (03/14/20 09:00) Rehab Nursing Orders: Ongoing Assess. of Cognitive Status, Ongoing Assess. of Function Status, Bladder Management, Bladder Scan, Bladder Training, Bowel Management, Bowel Training, Disease Management & Educaiton, DVT Prophylaxis, Fall Prevention, Fluid/Electrolyte/Nutrition Mgmt, Infection Prevention, Medication Management & Education, Management of Risks & Complications, Management of Skin Intergrity, Nutrition Management, Pain Management, Patient/Family Support, Safety Management, Swallow Precautions Intensity of Therapy to be met Patient to be seen: Min.3h per day/5 of 7d PT IPOC Problem List: Activity Tolerance, Functional Strength, Safety, Balance, Gait, Transfer, Bed Mobility Treatment Plan: Continue Plan of Care Bed Mobility, Education, Functional Activity Hailey, Functional Strength, Gait, Safety, Therapeutic Exercise, Transfers Treatment Duration: Mar 27, 2020 Frequency: At least 5 of 7 days/Wk (IRF) Estimated Hrs Per Day: 1.5 hours per day OT IPOC Problems: Decreased Activ Tolerance, Decreased Safety Aware, Impaired Coordination, Impaired Funct Balance, Restricted Funct UE ROM, Visual-Perceptual Deficit OT Treatment, Training and Edu: Yes Plan of Care: ADL Retraining, Functional Mobility Treatment Duration: Mar 14, 2020 Frequency: 5 times per week Estimated Hrs Per Day: [address] IPOC Speech Therapy Treatment Plan: Discontinue ST Treatment Duration: Mar 14, 2020 Frequency: Modified Program (IRF) Estimated Hrs Per Day: Other Platform Material Handler Manager/Case Mgmt Platform Material Handler Manager/Case Managemen: Discharge Planning Dietitian/Kindergarten Tutor Dietitian/Kindergarten Tutor to monitor nutritional status and make changes and/or recommendations as needed and work with speech pathology on dietary upgrades as the occur. Physician IPOC Medical Issues being managed closely and that require the 24 hour availability of a physician: Recent severe vertigo with continued loss of balance in prior stroke patient will need close monitoring of status with high fall risk Medical Issues: Bowel/Bladder Function, DVT Prophylaxis, Falls Precautions, Fluid/Electrolyte/Nutrition Balance, Infection Protection, Pain Management Brief Synthesis of Preadmission Screen, Post-Admission Evaluation, and Therapy Evaluations: PT OT will focus on regaining functional balance and withstand increased mobility and functional activity Medical Prognosis: Good Anticipated Length of Stay: 7 days JULIETTE FIERRO DO Mar 14, 2020 11:42
[2020-03-14 17:45] VITALS: BP 124/75
[2020-03-14] MEDS: FOLIC ACID 1 MG TAB PO SCH (21:25)
[2020-03-14] MEDS: amLODIPine 5 MG (NORVASC) TAB PO SCH (21:26)
[2020-03-15 06:30] VITALS: BP 107/71
[2020-03-15] MEDS: MULTIVIT W/MINERALS TAB (THERAGRAN M) PO SCH ×2 (06:50→11:15)
[2020-03-15] MEDS: PIOGLITAZONE 30MG (ACTOS) TAB PO SCH ×2 (06:50→11:15)
[2020-03-15] MEDS: ASPIRIN E.C. 81 MG (ECOTRIN) TAB PO SCH (08:04)
[2020-03-15] MEDS: MAGNESIUM OXIDE (MAG-OX)400 MG TAB PO SCH ×2 (08:04→20:16)
[2020-03-15] MEDS: PANTOPRAZOLE 40 MG (PROTONIX) TAB PO SCH (08:04)
[2020-03-15] MEDS: MECLIZINE 25 MG (ANTIVERT) TAB PO PRN (08:05)
[2020-03-15] MEDS: predniSONE 5 MG TAB PO SCH (08:05)
[2020-03-15] MEDS: LEVETIRACETAM 1,000 MG (KEPPRA) TABLET PO SCH ×2 (08:05→20:16)
[2020-03-15] MEDS: CALCIUM CARBONATE 600 MG (CALCARB) TAB PO SCH (08:05)
[2020-03-15] MEDS: LORATADINE (CLARITIN) 10 MG TAB PO SCH (08:05)
[2020-03-15] MEDS: THIAMINE 100 MG (VITAMIN B-1) TAB PO SCH (08:05)
[2020-03-15] MEDS: DOCUSATE SODIUM 100 MG (COLACE) CAP PO SCH ×2 (08:06→20:15)
[2020-03-15] MEDS: FLUoxetine HCL 20 MG (PROzac) CAP PO SCH (08:06)
[2020-03-15] MEDS: polyethylene glycoL POWDER 17 GM (MIRALAX) PACK PO SCH ×2 (08:07→20:15)
[2020-03-15] MEDS: SENNA W/DOCUSATE (SENOKOT S) TABLET PO SCH ×2 (08:07→20:15)
[2020-03-15] MEDS: TACROLIMUS 1 MG (PROGRAF) CAP NON-FORMULARY PO SCH ×2 (08:08→20:15)
[2020-03-15] MEDS: FLUTICASONE NASAL SPRAY (FLONASE) 16 GM BTL NS SCH (08:08)
[2020-03-15] MEDS: MYCOPHENOLATE 250 MG CAPSULE PO SCH ×2 (08:09→20:16)
[2020-03-15 08:14] VITALS: BP 122/82
[2020-03-15] MEDS: lisINopril 20 MG (PRINIVIL) TABLET PO SCH (08:22)
--- NOTE | 2020-03-15 08:38 | PM&R Progress Note ---
Subjective HPI/CC On Admission Date Seen by Provider: Mar 15, 2020 Time Seen by Provider: 08:30 Subjective/Events-last exam 03/15/20: Patient doing well Brett maneuver initiated today No pain reported BM+ Labs reviewed 03/14/20: Patient doing well Labs normal Vertigo still occurs Accuchecks reviewed BM+ Nystagmus noted when lying down Review of Systems General: Fatigue, Malaise Neurological: Weakness Objective Exam Vital Signs Vital Signs Date Time Temp Pulse Resp B/P (MAP) Pulse Ox O2 Delivery O2 Flow Rate FiO2 03/15/20 18:23 142/65 (90) 03/15/20 18:19 36.9 86 20 96 Room Air Capillary Refill : General Appearance: No Apparent Distress, WD/WN, Chronically ill, Obese HEENT: PERRL/EOMI, Normal ENT Inspection, Pharynx Normal Neck: Full Range of Motion, Normal Inspection, Non Tender, Supple, Carotid Bruit Respiratory: Chest Non Tender, Lungs Clear, Normal Breath Sounds, No Accessory Muscle Use, No Respiratory Distress Cardiovascular: Regular Rate, Rhythm, No Edema, No Gallop, No JVD, No Murmur, Normal Peripheral Pulses Gastrointestinal: Normal Bowel Sounds, No Organomegaly, No Pulsatile Mass, Non Tender, Soft Back: Normal Inspection, No CVA Tenderness, No Vertebral Tenderness Extremity: Normal Capillary Refill, Normal Inspection, Normal Range of Motion, Non Tender, No Calf Tenderness, No Pedal Edema Neurologic/Psychiatric: Alert, Oriented x3, No Motor/Sensory Deficits, Normal Mood/Affect, complex care nurse II-XII Norm as Tested, Abnormal Cerebellar Tests, Abnormal Gait, Motor Weakness (generalized weakness 4/5 extremities) Skin: Normal Color, Warm/Dry Lymphatic: No Adenopathy Results/Procedures Lab Patient resulted labs reviewed. FIM Transfers Therapy Code Descriptions/Definitions Functional [place]ukes Measure: 0=Not Assessed/NA 4=Minimal Assistance 1=Total Assistance 5=Supervision or Setup 2=Maximal Assistance 6=Modified Dukes 3=Moderate Assistance 7=Complete IndependenceSCALE: Activities may be completed with or without assistive devices. 4-Mafpgyvdvg-lbecgbs completes the activity by him/herself with no assistance from a helper. 5-Set-up or Clean-up Assistance-helper sets up or cleans up; patient completes activity. [place] assists only prior to or following the activity. 4-Supervision or Touching Assistance-helper provides verbal cues and/or touching/steadying and/or contact guard assistance as patient completes activity. Assistance may be provided throughout the activity or intermittently. 3-Partial/Moderate Assistance-helper does LESS THAN HALF the effort. [place] lifts, holds or supports trunk or limbs, but provides less than half the effort. 2-Substantial/Maximal Assistance-helper does MORE THAN HALF the effort. [place] lifts or holds trunk or limbs and provides more than half the effort. 7-Qrvjvocnr-zvtjbu does ALL the effort. Patient does none of the effort to complete the activity. Or, the assistance of 2 or more helpers is required for the patient to complete the activity. If activity was not attempted, code reason: 7-Patient Refused. 9-Not Applicable-not attempted and the patient did not perform the activity before the current illness, exacerbation or injury. 10-Not Attempted due to Environmental Limitations-(lack of equipment, weather restraints, etc.). 88-Not Attempted due to Medical Conditions or Safety Concerns. Roll Left to Right (QC): 4 Sit to Lying (QC): 4 Sit to Stand (QC): 4 Chair/Rnn-bl-Myysa Xfer(QC): 4 Car Transfer (QC): 4 Gait Training Does the Patient Walk?: Yes Walk 10 feet (QC): 4 Walk 50 ft with 2 Turns(QC): 4 Walk 150 ft (QC): 4 Walking 10ft/uneven surface-QC: 4 Gait Assistive Device: FWW Wheelchair Training Does the Pt Use a Wheelchair?: No Wheel 50 ft with 2 turns (QC): 9 Wheel 150 ft (QC): 9 Stair Training 1 Step (curb) (QC): 3 4 Steps (QC): 3 12 Steps (QC): 88 Balance Picking up an Object (QC): 3 Assessment/Plan Assessment and Plan Assess & Plan/Chief Complaint Assessment: Severe disabling neurological deficit with severe vertigo 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 Seizure disorder Bilateral renal transplant Immunocompromise Chronic tremors (mostly R side) HTN Diabetes mellitus Hyperlipidemia Obstructive sleep apnea on cpap COVID-19 pneumonia on 01/23/2020 Plan: IRF protocol Home meds DM checks Check labs Fall risk 03/14/20: Monitor closely Monitor glucometer checks Vertigo management per PT 03/15/20: Brett maneuver Monitor therapy BP BS monitoring (1) Neurocognitive deficits (2) ZEB on CPAP (3) Renal transplant recipient (4) Immunosuppressed status (5) Glomerular disease (6) Obesity (7) Diabetes (8) Hypertension (9) Hyperlipemia (10) History of hemorrhagic stroke with residual hemiparesis (11) Tremor (12) Post-acute COVID-19 syndrome (13) Seizure disorder JULIETTE FIERRO DO Mar 15, 2020 08:38
--- NOTE | 2020-03-15 09:55 | Physical Therapy Daily Note ---
PT Daily Note-Current Subjective Patient in recliner pre tx, agrees to PT, has no complaints of pain, patient has been having dizziness with turning, has had an jarrett maneuver done before with little change, will attempt again. Appearance Patient in recliner post tx with nurse call, phone, tray, all needs met. Mental Status Patient Orientation: Person, Place, Situation Transfers SCALE: Activities may be completed with or without assistive devices. 8-Mjfdwebwhn-hwbhdke completes the activity by him/herself with no assistance from a helper. 5-Set-up or Clean-up Assistance-helper sets up or cleans up; patient completes activity. [place] assists only prior to or following the activity. 4-Supervision or Touching Assistance-helper provides verbal cues and/or touch ing/steadying and/or contact guard assistance as patient completes activity. Assistance may be provided throughout the activity or intermittently. 3-Partial/Moderate Assistance-helper does LESS THAN HALF the effort. [place] lifts, holds or supports trunk or limbs, but provides less than half the effort. 2-Substantial/Maximal Assistance-helper does MORE THAN HALF the effort. [place] lifts or holds trunk or limbs and provides more than half the effort. 9-Nfyhmiavl-atftwz does ALL the effort. Patient does none of the effort to complete the activity. Or, the assistance of 2 or more helpers is required for the patient to complete the activity. If activity was not attempted, code reason: 7-Patient Refused. 9-Not Applicable-not attempted and the patient did not perform the activity before the current illness, exacerbation or injury. 10-Not Attempted due to Environmental Limitations-(lack of equipment, weather restraints, etc.). 88-Not Attempted due to Medical Conditions or Safety Concerns. Roll Left & Right (QC): 6 Sit to Lying (QC): 6 Lying to Sitting/Side of Bed(Q: 6 Sit to Stand (QC): 4 Chair/Mpm-wo-Aqelp Xfer(QC): 4 Jarrett performed, patient states later that his dizziness with turning feels less but is still there. Gait Training Distance: 600'x2, 400' Walk 10 feet (QC): 4 Walk 50 ft with 2 Turns(QC): 4 Walk 150 ft (QC): 4 Gait Persons Needed: 1 Gait Assistive Device: FWW CGA, patient ambulated 600'x2 with a rolling walker and 400'x2 with a SPC. Patient states he has occasional dizziness with turning but has no LOB and little to no moments of instability. Exercises NuStep Minutes: 15 NuStep Workload: 5 Treatments bed mobility and transfers, ambulation, functional strengthening, jarrett Assessment Current Status: Fair Progress improving functional mobility, less dizziness PT Short Term Goals Short Term Goals Time Frame: Mar 20, 2020 Sit to lyin Lying to sitting on side of be: 5 Sit to stand: 5 Walk 150 feet: 4 PT Rn Icu Goals Rn Icu Goals PT Rn Icu Goals Time Frame: Mar 27, 2020 Roll Left & Right (QC): 6 Sit to Lying (QC): 6 Lying-Sitting on Side/Bed(QC): 6 Sit to Stand (QC): 6 Chair/Nwq-zm-Gzugl Xfer(QC): 6 Toilet Transfer (QC): 6 Car Transfer (QC): 6 Does the Patient Walk: Yes Walk 10 feet (QC): 6 Walk 50ft with 2 Turns (QC): 6 Walk 150 ft (QC): 6 Walking 10ft on Uneven Surface: 6 1 Step (curb) (QC): 6 4 Steps (QC): 6 12 Steps (QC): 6 Picking up an Object (QC): 5 Does the Pt use WC or Scooter?: No Wheel 50 feet with 2 turns (QC: 9 Wheel 150 feet: 9 PT Plan Problem List Problem List: Activity Tolerance, Functional Strength, Safety, Balance, Gait, Transfer Treatment/Plan Treatment Plan: Continue Plan of Care Treatment Plan: Bed Mobility, Education, Functional Activity Hailey, Functional Strength, Gait, Safety, Therapeutic Exercise, Transfers Treatment Duration: Mar 27, 2020 Frequency: At least 5 of 7 days/Wk (IRF) Estimated Hrs Per Day: 1.5 hours per day Patient and/or Family Agrees t: Yes Safety Risks/Education Patient Education: Gait Training, Transfer Techniques, Correct Positioning, Safety Issues Teaching Recipient: Patient Teaching Methods: Demonstration, Discussion Response to Teaching: Reinforcement Needed Time/GCodes Time In: 0900 Time Out: 1000 Total Billed Treatment Time: 60 Total Billed Treatment 1 visit EX 15' FA 45' HANG CHENG PT Mar 15, 2020 09:55
--- NOTE | 2020-03-15 11:15 | NUR ---
Night RNJessica had told this RN, & pt states that he received his Actos & MVI this morning by night nurse.
--- NOTE | 2020-03-15 14:09 | Physical Therapy Daily Note ---
PT Daily Note-Current Subjective Patient in chair pre tx, agrees to PT, has no complaints of pain. Patient states his dizziness has gotten better since the jarrett this morning. Appearance Patient in room post tx, discussed with nurse and he will now be independent in his room and able to go to the restroom by himself. Mental Status Patient Orientation: Person, Place, Situation Transfers SCALE: Activities may be completed with or without assistive devices. 5-Txjpnvifxg-pinaksl completes the activity by him/herself with no assistance from a helper. 5-Set-up or Clean-up Assistance-helper sets up or cleans up; patient completes activity. [place] assists only prior to or following the activity. 4-Supervision or Touching Assistance-helper provides verbal cues and/or touching/steadying and/or contact guard assistance as patient completes activity. Assistance may be provided throughout the activity or intermittently. 3-Partial/Moderate Assistance-helper does LESS THAN HALF the effort. [place] lifts, holds or supports trunk or limbs, but provides less than half the effort. 2-Substantial/Maximal Assistance-helper does MORE THAN HALF the effort. [place] lifts or holds trunk or limbs and provides more than half the effort. 6-Vbpcudgon-sfjuod does ALL the effort. Patient does none of the effort to complete the activity. Or, the assistance of 2 or more helpers is required for the patient to complete the activity. If activity was not attempted, code reason: 7-Patient Refused. 9-Not Applicable-not attempted and the patient did not perform the activity before the current illness, exacerbation or injury. 10-Not Attempted due to Environmental Limitations-(lack of equipment, weather restraints, etc.). 88-Not Attempted due to Medical Conditions or Safety Concerns. Sit to Stand (QC): 6 Chair/Zwy-cq-Vwoau Xfer(QC): 6 Gait Training Distance: 1200' Walk 10 feet (QC): 6 Walk 50 ft with 2 Turns(QC): 6 Walk 150 ft (QC): 6 Gait Assistive Device: Cane Single Point one standing rest break, no LOB or unsteadiness Treatments ambulation Assessment Current Status: Fair Progress much improved, now independent with ambulation using a SPC PT Short Term Goals Short Term Goals Time Frame: Mar 20, 2020 Sit to lyin Lying to sitting on side of be: 5 Sit to stand: 5 Walk 150 feet: 4 PT Sliver Handler Goals Assisted Goals PT Sliver Handler Goals Time Frame: Mar 27, 2020 Roll Left & Right (QC): 6 Sit to Lying (QC): 6 Lying-Sitting on Side/Bed(QC): 6 Sit to Stand (QC): 6 Chair/Jhl-dg-Psmqz Xfer(QC): 6 Toilet Transfer (QC): 6 Car Transfer (QC): 6 Does the Patient Walk: Yes Walk 10 feet (QC): 6 Walk 50ft with 2 Turns (QC): 6 Walk 150 ft (QC): 6 Walking 10ft on Uneven Surface: 6 1 Step (curb) (QC): 6 4 Steps (QC): 6 12 Steps (QC): 6 Picking up an Object (QC): 5 Does the Pt use WC or Scooter?: No Wheel 50 feet with 2 turns (QC: 9 Wheel 150 feet: 9 PT Plan Problem List Problem List: Activity Tolerance, Functional Strength, Safety, Balance, Gait, Transfer Treatment/Plan Treatment Plan: Continue Plan of Care Treatment Plan: Bed Mobility, Education, Functional Activity Hailey, Functional Strength, Gait, Safety, Therapeutic Exercise, Transfers Treatment Duration: Mar 27, 2020 Frequency: At least 5 of 7 days/Wk (IRF) Estimated Hrs Per Day: 1.5 hours per day Patient and/or Family Agrees t: Yes Safety Risks/Education Patient Education: Gait Training, Transfer Techniques, Correct Positioning, Safety Issues Teaching Recipient: Patient Teaching Methods: Demonstration, Discussion Response to Teaching: Reinforcement Needed Time/GCodes Time In: 1345 Time Out: 1400 Total Billed Treatment Time: 15 Total Billed Treatment 1 visit GT 15' HANG CHENG PT Mar 15, 2020 14:09
--- NOTE | 2020-03-15 14:25 | NUR ---
Per PTSlim, pt can be up in his room independently.
--- NOTE | 2020-03-15 14:33 | NUR ---
CM/SS ADMISSION Patient was admitted to ARU 03/13/20 from [facility] for disabling neurological deficit with severe vertigo. Patient has significant comorbidities, in part: ZEB on CPAP, bilateral renal transplant, immunosuppressed status, glomerular disease, diabetes, HTN, hemiplegia and hemiparesis following previous CVA, chronic tremor (mostly Right side), Covid 19 pneumonia 01/23/20, seizure disorder. Patient resides at home with his spouse, Chantelle Arana, and their two adult children who are college students. Patient plans to return there when stable to do so. PCP: Dr. Jose A Vo, DO, [facility] affiliated. [phone] PHARMACY: [facility] INSURANCE: Medicare, [facility] supplement DME: Has CPAP, FWW, grab bars in bath. Does not have standard point cane or shower chair. BARRIERS TO DISCHARGE PLANNING: Patient identifies navigation of steps as a barrier since they live in a split level and it requires steps up or down to access living quarters. He has motivation to be able to regain ability to safely access the steps during his time here with the therapy team. CONTACTS: Chantelle Arana, [address] [place] [address] Patient understands the purpose and process of the weekly patient care conference and that his first review will be Tuesday, March 17, 2020.
--- NOTE | 2020-03-15 15:05 | ST Cognitive Linguistic Eval ---
Speech Evaluation-General Medical Diagnosis neuro deficits Onset Date: Mar 13, 2020 Therapy Diagnosis Therapy Diagnosis: Cognitive-communication Referral Referring Physician: Dr. Sawyer Medical History Pertinent Medical History: DM, HTN Reviewed History: Yes Social History Current Living Status: Spouse (and 2 children 19 and 20 y./o) Speech PLF-Current Status Prior Level of Function Patient lives at home with his where he is independent for most of his daily needs. Subjective Patient was cooperative and pleasant with the cognitive assessment. Language Eval: Auditory Comprehends Simple Yes/No Ques: Functional Indent/Objects Multiple Bai: Functional Ident/Pics in Multiple Bai: Functional Follows 1-Step Commands: Functional Follows Complex Directions: Functional Follows General Conversations: Functional Language Eval: Verbal Language Completes Spontaneous Greeting: Functional Produces Auto, Serial Info: Functional Imitates Simple Words/Phrases: Functional Word Finding: Functional Requests Basic Needs: Functional States Basic Personal Info: Functional Expresses Complex Ideas: Functional Objective Cognitive Domain Attention: WNL Memory: WNL Problem Solving: Functional Executive Functions: WNL Visuospatial Skills: Mild Composite Severity Rating: WNL Clock Drawing Severity Rating: WNL 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 Objective Formal/Standardized Tests [facility] Mental Status ([facility]) Results 28/30, within normal range of function Oral Motor/Speech Production Within Normal Limits Impression Patient is a pleasant 50 y/o who has had a complex medical history for a man of his age. Patient currently was admitted to the ARU due to Vertigo. Patient was given the SLUMS this morning with a score of 28/30. This score is within the normal range and does not indicate the need for further ST at this time. Speech Patient Assess Expression of Ideas/Wants: Expression (4) Understanding Verbal Content: Understands (4) Brief Interview-Mental Status: Yes Repetition of Three Words: Three (3) Temporal Orientation: Year: Correct (3) Temporal Orientation: Month: Accurate within 5 days(2) Temporal Orientation: Day: Correct (1) Recall : Wear to say "Sock": Yes, no cue required (2) Recall : Color: Yes, no cue required (2) Recall : Bed: Yes,after cueing (1) Memory/Recall Ability: Current season, Location of own room, Staff names and faces, That he or she is in a hsp/hsp unit Speech-Plan Patient/Family Goals Patient/Family Goals: Patient plans on returning to his home upon discharge. Treatment Plan Speech Therapy Treatment Plan: Discontinue ST Treatment Duration: Mar 15, 2020 Frequency: 1 time per week Estimated Hrs Per Day: Other Rehab Potential: Good Barriers to Learning: None identified Pt/Family Agrees to Plan: Yes Safety Risks/Education Teaching Recipient: Patient Teaching Methods: Discussion Response to Teaching: Verbalize Understanding Education Topics Provided: Safety within his room, communication of wants/needs Time Speech Therapy Time In: 11:00 Speech Therapy Time Out: 11:30 Total Billed Time: 30 Billed Treatment Time 1, SPSNDCOMJHONATHAN Nevarez Mar 15, 2020 15:05
--- NOTE | 2020-03-15 15:27 | Occupational Therapy Eval ---
OT Evaluation-General/PLF Medical Diagnosis Admission Date Mar 13, 2020 at 10:46 Medical Diagnosis: neuro deficits/vertigo Onset Date: Mar 13, 2020 Therapy Diagnosis Therapy Diagnosis: Weakness, Decreased ADL skills Precautions Precautions/Isolations: Seizure, Fall Prevention, Standard Precautions, Pressure Ulcer Weight Bear Status Weight Bearing Restriction: Weight Bearing/Tolerated Referral Physician: Digna Galo Reason: Activity Tolerance, Self Care, Evaluation/Treatment, Strengthening/ROM Medical History Pertinent Medical History: CVA, DM, HTN Additional Medical History Bilateral renal transplants, Seizure disorder, tremors in bilateral UE, 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 Current History Pt. began experiencing debilitating Vertigo. Had stroke work up. No CVA present. Pt. reports that at the time that he decided to come to IRU, he was having great difficulty even standing. Symptoms have continued to resolve. Reviewed History: Yes Social History Home: [facility] Current Living Status: Spouse (and 2 children 19 and 20 y./o) Entry Into Home: Stairs With Railing (4) Steps Into Home: 4 Steps Inside Home: 12 Other Obstacles: handrail at steps ADL-Prior Level of Function SCALE: Activities may be completed with or without assistive devices. 6-Dltihyzbmm-uonqsge completes the activity by him/herself with no assistance from a helper. 5-Set-up or Clean-up Assistance-helper sets up or cleans up; patient completes activity. [place] assists only prior to or following the activity. 4-Supervision or Touching Assistance-helper provides verbal cues and/or touching/steadying and/or contact guard assistance as patient completes activity. Assistance may be provided throughout the activity or intermittently. 3-Partial/Moderate Assistance-helper does LESS THAN HALF the effort. [place] lifts, holds or supports trunk or limbs, but provides less than half the effort. 2-Substantial/Maximal Assistance-helper does MORE THAN HALF the effort. [place] lifts or holds trunk or limbs and provides more than half the effort. 9-Elzxpixev-hrfuvg does ALL the effort. Patient does none of the effort to complete the activity. Or, the assistance of 2 or more helpers is required for the patient to complete the activity. If activity was not attempted, code reason: 7-Patient Refused. 9-Not Applicable-not attempted and the patient did not perform the activity before the current illness, exacerbation or injury. 10-Not Attempted due to Environmental Limitations-(lack of equipment, weather restraints, etc.). 88-Not Attempted due to Medical Conditions or Safety Concerns. ADL PLOF Comments Pt. states that he is typically independent with daily skills. He is unable to drive due to being legally blind. He does not use a walker at home, but does have a walker and his parents own many canes. Self Care: Independent Functional Cognition: Independent DME/Equipment: Shower Occupation: Pt. on disability Drive Self: No OT Current Status Subjective No pain reported. Pt. verbalizes that he is feeling better, and does not have any dizziness at this time. Appearance Pt. up in chair. Agrees to work with OT. Mental Status/Objective Patient Orientation: Person, Place, Time, Situation Current Hand Dominance: Right Upper Extremity ROM WFL Upper Extremity Strength 4/5 bilateral UE Pt. does demonstrate bilateral tremors, and states that this is not new. He reports that his right sided weakness from his CVA in 2007 has resolved. ADL-Treatment Eating (QC): 5 Oral Hygiene (QC): 5 (Seated at sink in bathroom.) Shower/Bathe Self (QC): 4 (SBA to shower self. No loss of balance noted.) Upper Body Dressing (QC): 4 (SBA) Lower Body Dressing (QC): 4 (SBA to doff/don LE clothing in stance.) On/Off Footwear (QC): 4 Toileting Hygiene (QC): 4 (SBA to stand at toilet to urinate.) Other Treatments Pt. seen in several different sessions. Pt. states that he is doing much better. Pt. presents with left residual visual field cut, but compensates well. He is currently using a cane for mobility. No LOB noted, and pt. states that he is being "very careful" with therapy during ambulation. He reports that he had signficant vertigo that was very debilitating, but seems at present to be improving greatly. Pt. seen at second session in p.m. for laundry task. Pt. able to ambulate to laundry room with SBA, and change laundry from washer to dryer, and then put in his own. Noted that pt. had difficulty only visually, and is educated on adaptive techniques that he can apply at home to improve his ability to see the settings on the machines. Pt. ambulates back to room with cane and SBA. All needs met. Education OT Patient Education: Correct positioning, Modified ADL techniques, Progress toward Goal/Update tx plan, Purpose of tx/functional activities, Reviewed precautions, Rehab process, Transfer techniques Teaching Recipient: Patient Teaching Methods: Demonstration, Discussion Response to Teaching: Verbalize Understanding, Return Demonstration OT Missile Control Pilot Goals Retirement Goals Time Frame: Mar 29, 2020 Eating (QC): 6 Oral Hygiene (QC): 6 Toileting Hygiene (QC): 6 Shower/Bathe Self (QC): 6 Upper Body Dressing (QC): 6 Lower Body Dressing (QC): 6 On/Off Footwear (QC): 6 Additional Goals: 1-Demonstrate ADL Tasks, 2-Verbalize Understanding, 3- ImproveStrength/Hailey 1=Demonstrate adherence to instructed precautions during ADL tasks. 2=Patient will verbalize/demonstrate understanding of assistive devices/modif ications for ADL. 3=Patient will improve strength/tolerance for activity to enable patient to perform ADL's. OT Education/Plan Problem List/Assessment Assessment: Decreased Activ Tolerance, Impaired Funct Balance, Impaired I ADL's, Impaired Self-Care Skills Discharge Recommendations Plan/Recommendations: Continue POC Therapy Discharge Recommendati: Home & Family Treatment Plan/Plan of Care Treatment,Training & Education: Yes Patient would benefit from OT for education, treatment and training to promote independence in ADL's, mobility, safety and/or upper extremity function for ADL's. Plan of Care: ADL Retraining, Functional Mobility, UE Funct Exercise/Act Treatment Duration: Mar 14, 2020 Frequency: 5 times per week Estimated Hrs Per Day: 1.5 hours per day Agreement: Yes Rehab Potential: Good Time/GCodes Start Time: 10:45 Stop Time: 13:20 Total Time Billed (hr/min): 80 Billed Treatment Time 7166-4522 1, EVM x 15minutes [id number] 1, ADL x 45minutes [id number] 1, ADL x 20minutes GERSON YOUNG OT Mar 15, 2020 15:27
[2020-03-15 18:19] VITALS: BP 155/92
[2020-03-15 18:23] VITALS: BP 142/65
[2020-03-15] MEDS: FOLIC ACID 1 MG TAB PO SCH (20:16)
[2020-03-15] MEDS: amLODIPine 5 MG (NORVASC) TAB PO SCH (20:16)
[2020-03-16 06:00] VITALS: BP 111/57
[2020-03-16] MEDS: MULTIVIT W/MINERALS TAB (THERAGRAN M) PO SCH (07:04)
[2020-03-16] MEDS: PIOGLITAZONE 30MG (ACTOS) TAB PO SCH (07:04)
[2020-03-16 08:00] VITALS: BP 112/76
--- NOTE | 2020-03-16 08:32 | PM&R Progress Note ---
Subjective HPI/CC On Admission Date Seen by Provider: Mar 16, 2020 Time Seen by Provider: 09:30 Subjective/Events-last exam 03/16/20: Pt feels like he is getting shingles again Bowels moved yesterday Up AD LINDA Brett maneuver performed by PT and it is resolved his issue Doing extraordinarily well Feels like he is getting shingles again so started on Valtrex. He had been on suppressive therapy and took himself off of it last month 03/15/20: Patient doing well Brett maneuver initiated today No pain reported BM+ Labs reviewed 03/14/20: Patient doing well Labs normal Vertigo still occurs Accuchecks reviewed BM+ Nystagmus noted when lying down Review of Systems General: Fatigue, Malaise Objective Exam Vital Signs Vital Signs Date Time Temp Pulse Resp B/P (MAP) Pulse Ox O2 Delivery O2 Flow Rate FiO2 03/16/20 20:20 Room Air 03/16/20 18:27 36.4 86 20 124/76 (92) 95 Capillary Refill : General Appearance: No Apparent Distress, WD/WN, Chronically ill, Obese HEENT: PERRL/EOMI, Normal ENT Inspection, Pharynx Normal Neck: Full Range of Motion, Normal Inspection, Non Tender, Supple, Carotid Bruit Respiratory: Chest Non Tender, Lungs Clear, Normal Breath Sounds, No Accessory Muscle Use, No Respiratory Distress Cardiovascular: Regular Rate, Rhythm, No Edema, No Gallop, No JVD, No Murmur, Normal Peripheral Pulses Gastrointestinal: Normal Bowel Sounds, No Organomegaly, No Pulsatile Mass, Non Tender, Soft Back: Normal Inspection, No CVA Tenderness, No Vertebral Tenderness Extremity: Normal Capillary Refill, Normal Inspection, Normal Range of Motion, Non Tender, No Calf Tenderness, No Pedal Edema Neurologic/Psychiatric: Alert, Oriented x3, No Motor/Sensory Deficits, Normal Mood/Affect, communications editor II-XII Norm as Tested, Abnormal Cerebellar Tests, Abnormal Gait, Motor Weakness (generalized weakness 4/5 extremities) Skin: Normal Color, Warm/Dry Lymphatic: No Adenopathy Results/Procedures Lab Patient resulted labs reviewed. FIM Transfers Therapy Code Descriptions/Definitions Functional [place] Measure: 0=Not Assessed/NA 4=Minimal Assistance 1=Total Assistance 5=Supervision or Setup 2=Maximal Assistance 6=Modified Ida 3=Moderate Assistance 7=Complete IndependenceSCALE: Activities may be completed with or without assistive devices. 5-Gbxzzqkiyh-jfcjdlt completes the activity by him/herself with no assistance from a helper. 5-Set-up or Clean-up Assistance-helper sets up or cleans up; patient completes activity. [place] assists only prior to or following the activity. 4-Supervision or Touching Assistance-helper provides verbal cues and/or touching/steadying and/or contact guard assistance as patient completes activity. Assistance may be provided throughout the activity or intermittently. 3-Partial/Moderate Assistance-helper does LESS THAN HALF the effort. [place] lifts, holds or supports trunk or limbs, but provides less than half the effort. 2-Substantial/Maximal Assistance-helper does MORE THAN HALF the effort. [place] lifts or holds trunk or limbs and provides more than half the effort. 2-Kigfwfebp-etqism does ALL the effort. Patient does none of the effort to compl ete the activity. Or, the assistance of 2 or more helpers is required for the patient to complete the activity. If activity was not attempted, code reason: 7-Patient Refused. 9-Not Applicable-not attempted and the patient did not perform the activity before the current illness, exacerbation or injury. 10-Not Attempted due to Environmental Limitations-(lack of equipment, weather restraints, etc.). 88-Not Attempted due to Medical Conditions or Safety Concerns. Roll Left to Right (QC): 6 Sit to Lying (QC): 6 Sit to Stand (QC): 6 Chair/Pki-yw-Tfubz Xfer(QC): 6 Car Transfer (QC): 4 Gait Training Does the Patient Walk?: Yes Distance: 1200' Walk 10 feet (QC): 6 Walk 50 ft with 2 Turns(QC): 6 Walk 150 ft (QC): 6 Walking 10ft/uneven surface-QC: 4 Gait Persons Needed: 1 Gait Assistive Device: Cane Single Point Wheelchair Training Does the Pt Use a Wheelchair?: No Wheel 50 ft with 2 turns (QC): 9 Wheel 150 ft (QC): 9 Stair Training 1 Step (curb) (QC): 3 4 Steps (QC): 3 12 Steps (QC): 88 Balance Picking up an Object (QC): 3 ADL-Treatment Eating (QC): 5 Oral Hygiene (QC): 5 (Seated at sink in bathroom.) Shower/Bathe Self (QC): 4 (SBA to shower self. 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 Seizure disorder Bilateral renal transplant Immunocompromise Chronic tremors (mostly R side) HTN Diabetes mellitus Hyperlipidemia Obstructive sleep apnea on cpap COVID-19 pneumonia on 01/23/2020 Recurrent shingles with flare 03/16/20 started on Valtrex Plan: IRF protocol Home meds DM checks Check labs Fall risk 03/14/20: Monitor closely Monitor glucometer checks Vertigo management per PT 03/15/20: Brett maneuver Monitor therapy BP BS monitoring 03/16/20: Valtrex for recurrent shingles Monitor balance Fall risk prevention (1) Neurocognitive deficits (2) ZEB on CPAP (3) Renal transplant recipient (4) Immunosuppressed status (5) Glomerular disease (6) Obesity (7) Diabetes (8) Hypertension (9) Hyperlipemia (10) History of hemorrhagic stroke with residual hemiparesis (11) Tremor (12) Post-acute COVID-19 syndrome (13) Seizure disorder JULIETTE FIERRO DO Mar 16, 2020 08:32
--- NOTE | 2020-03-16 08:55 | Physical Therapy Daily Note ---
PT Daily Note-Current Subjective Patient in bed pre tx, agrees to PT, has no complaints of pain. Patient states his dizziness is barely there now. Appearance Patient in recliner post tx with nurse call, phone, tray, all needs met. Mental Status Patient Orientation: Person, Place, Situation, Normal For Age Transfers SCALE: Activities may be completed with or without assistive devices. 3-Dnwnwkzlbg-wxsjgpd completes the activity by him/herself with no assistance from a helper. 5-Set-up or Clean-up Assistance-helper sets up or cleans up; patient completes activity. [place] assists only prior to or following the activity. 4-Supervision or Touching Assistance-helper provides verbal cues and/or touching/steadying and/or contact guard assistance as patient completes activity. Assistance may be provided throughout the activity or intermittently. 3-Partial/Moderate Assistance-helper does LESS THAN HALF the effort. [place] lifts, holds or supports trunk or limbs, but provides less than half the effort. 2-Substantial/Maximal Assistance-helper does MORE THAN HALF the effort. [place] lifts or holds trunk or limbs and provides more than half the effort. 7-Wbnbifeha-whebjv does ALL the effort. Patient does none of the effort to complete the activity. Or, the assistance of 2 or more helpers is required for the patient to complete the activity. If activity was not attempted, code reason: 7-Patient Refused. 9-Not Applicable-not attempted and the patient did not perform the activity before the current illness, exacerbation or injury. 10-Not Attempted due to Environmental Limitations-(lack of equipment, weather restraints, etc.). 88-Not Attempted due to Medical Conditions or Safety Concerns. Roll Left & Right (QC): 6 Lying to Sitting/Side of Bed(Q: 6 Sit to Stand (QC): 6 Chair/Ffd-sf-Dcctt Xfer(QC): 6 Gait Training Distance: 1200', 150' Walk 10 feet (QC): 6 Walk 50 ft with 2 Turns(QC): 6 Walk 150 ft (QC): 6 Gait Assistive Device: Cane Single Point steady ambulation, no LOB Stair Training Stair Training: Handrails/: 1 handrail #of Steps: 12 1 Step (curb) (QC): 6 4 Steps (QC): 6 12 Steps (QC): 6 Stairs: Pattern: Reciprocal Exercises Standing: Hip Abduction, Heel/toe raises, Marching, Mini squats Standing Reps: 20 LAQ alternating for 5 min with 2# weights NuStep Minutes: 15 NuStep Workload: 5 Treatments bed mobility and transfers, ambulation, stair training, functional strengthening Assessment Current Status: Fair Progress independent with mobility now PT Short Term Goals Short Term Goals Time Frame: Mar 20, 2020 Sit to lyin Lying to sitting on side of be: 5 Sit to stand: 5 Walk 150 feet: 4 PT Half-Way Goals Half-Way Goals PT Product Control And Logistics Analyst Goals Time Frame: Mar 27, 2020 Roll Left & Right (QC): 6 Sit to Lying (QC): 6 Lying-Sitting on Side/Bed(QC): 6 Sit to Stand (QC): 6 Chair/Scu-hx-Vxgbl Xfer(QC): 6 Toilet Transfer (QC): 6 Car Transfer (QC): 6 Does the Patient Walk: Yes Walk 10 feet (QC): 6 Walk 50ft with 2 Turns (QC): 6 Walk 150 ft (QC): 6 Walking 10ft on Uneven Surface: 6 1 Step (curb) (QC): 6 4 Steps (QC): 6 12 Steps (QC): 6 Picking up an Object (QC): 5 Does the Pt use WC or Scooter?: No Wheel 50 feet with 2 turns (QC: 9 Wheel 150 feet: 9 PT Plan Problem List Problem List: Activity Tolerance, Functional Strength, Safety, Balance, Gait, Transfer Treatment/Plan Treatment Plan: Continue Plan of Care Treatment Plan: Bed Mobility, Education, Functional Activity Hailey, Functional Strength, Gait, Safety, Therapeutic Exercise, Transfers Treatment Duration: Mar 27, 2020 Frequency: At least 5 of 7 days/Wk (IRF) Estimated Hrs Per Day: 1.5 hours per day Patient and/or Family Agrees t: Yes Safety Risks/Education Patient Education: Gait Training, Transfer Techniques, Steps, Correct Positioning, Safety Issues Teaching Recipient: Patient Teaching Methods: Demonstration, Discussion Response to Teaching: Reinforcement Needed Time/GCodes Time In: 0800 Time Out: 0900 Total Billed Treatment Time: 60 Total Billed Treatment 1 visit GT 30' EX 30' HANG CHENG PT Mar 16, 2020 08:55
[2020-03-16] MEDS: PANTOPRAZOLE 40 MG (PROTONIX) TAB PO SCH (09:17)
[2020-03-16] MEDS: FLUoxetine HCL 20 MG (PROzac) CAP PO SCH (09:17)
[2020-03-16] MEDS: THIAMINE 100 MG (VITAMIN B-1) TAB PO SCH (09:17)
[2020-03-16] MEDS: CALCIUM CARBONATE 600 MG (CALCARB) TAB PO SCH (09:17)
[2020-03-16] MEDS: LORATADINE (CLARITIN) 10 MG TAB PO SCH (09:17)
[2020-03-16] MEDS: ASPIRIN E.C. 81 MG (ECOTRIN) TAB PO SCH (09:17)
[2020-03-16] MEDS: lisINopril 20 MG (PRINIVIL) TABLET PO SCH (09:17)
[2020-03-16] MEDS: predniSONE 5 MG TAB PO SCH (09:18)
[2020-03-16] MEDS: MAGNESIUM OXIDE (MAG-OX)400 MG TAB PO SCH ×2 (09:18→20:32)
[2020-03-16] MEDS: LEVETIRACETAM 1,000 MG (KEPPRA) TABLET PO SCH ×2 (09:18→20:32)
[2020-03-16] MEDS: TACROLIMUS 1 MG (PROGRAF) CAP NON-FORMULARY PO SCH ×2 (09:21→20:32)
[2020-03-16] MEDS: FLUTICASONE NASAL SPRAY (FLONASE) 16 GM BTL NS SCH (09:21)
[2020-03-16] MEDS: MYCOPHENOLATE 250 MG CAPSULE PO SCH ×2 (09:23→20:33)
[2020-03-16] MEDS: DOCUSATE SODIUM 100 MG (COLACE) CAP PO SCH ×2 (09:27→20:39)
[2020-03-16] MEDS: polyethylene glycoL POWDER 17 GM (MIRALAX) PACK PO SCH ×2 (09:27→20:39)
[2020-03-16] MEDS: SENNA W/DOCUSATE (SENOKOT S) TABLET PO SCH ×2 (09:27→20:39)
[2020-03-16] MEDS: VALACYCLOVIR 500 MG TAB (VALTREX) PO SCH ×3 (10:26→20:32)
--- NOTE | 2020-03-16 12:19 | Occupational Ther Daily Note ---
OT Current Status-Daily Note Subjective No pain reported. Pt. does report that he has been very tired. Appearance Pt. asleep when OT enters room, but agrees to work. Mental Status/Objective Patient Orientation: Person, Place, Time, Situation ADL-Treatment Therapy Code Descriptions/Definitions Functional [place] Measure: 0=Not Assessed/NA 4=Minimal Assistance 1=Total Assistance 5=Supervision or Setup 2=Maximal Assistance 6=Modified [place] 3=Moderate Assistance 7=Complete IndependenceSCALE: Activities may be completed with or without assistive devices. 1-Cvcihvrozt-kktgnpu completes the activity by him/herself with no assistance from a helper. 5-Set-up or Clean-up Assistance-helper sets up or cleans up; patient completes activity. [place] assists only prior to or following the activity. 4-Supervision or Touching Assistance-helper provides verbal cues and/or touching/steadying and/or contact guard assistance as patient completes activity. Assistance may be provided throughout the activity or intermittently. 3-Partial/Moderate Assistance-helper does LESS THAN HALF the effort. [place] lifts, holds or supports trunk or limbs, but provides less than half the effort. 2-Substantial/Maximal Assistance-helper does MORE THAN HALF the effort. [place] lifts or holds trunk or limbs and provides more than half the effort. 9-Pbydcjaww-gllpbw does ALL the effort. Patient does none of the effort to complete the activity. Or, the assistance of 2 or more helpers is required for the patient to complete the activity. If activity was not attempted, code reason: 7-Patient Refused. 9-Not Applicable-not attempted and the patient did not perform the activity before the current illness, exacerbation or injury. 10-Not Attempted due to Environmental Limitations-(lack of equipment, weather restraints, etc.). 88-Not Attempted due to Medical Conditions or Safety Concerns. Eating (QC): 6 Oral Hygiene (QC): 6 Shower/Bathe Self (QC): 5 (Set up to shower.) Upper Body Dressing (QC): 5 Lower Body Dressing (QC): 5 On/Off Footwear: 5 Toileting Hygiene (QC): 4 Toilet Transfer (QC): 4 Other Treatment Pt. is agreeable to work on ADLs. He showers and dresses with little difficulty. Pt. verbalizes that he is feeling pretty much back to baseline, with increased fatigue. He reports no dizziness, and today, ambulated without assistive device. Pt. ambulated to kitchen area after ADLs, and practices retrieving items from high and low cabinets. Pt. is educated on energy conservation techniques, safety techniques, proper retrieval of items, and other ways to make each task more simple. Pt. verbalizes understanding, and has in fact already adjusted much of his system at home to meet his needs. Pt. ambulated back to room with SBA and no AE. Pt. in chair with all needs met. Education OT Patient Education: Correct positioning, Modified ADL techniques, Progress toward Goal/Update tx plan, Purpose of tx/functional activities, Reviewed precautions, Rehab process, Transfer techniques Teaching Recipient: Patient Teaching Methods: Demonstration, Discussion Response to Teaching: Verbalize Understanding, Return Demonstration OT Longterm Goals Drivematic Machine Operator Goals Time Frame: Mar 29, 2020 Eating (QC): 6 Oral Hygiene (QC): 6 Toileting Hygiene (QC): 6 Shower/Bathe Self (QC): 6 Upper Body Dressing (QC): 6 Lower Body Dressing (QC): 6 On/Off Footwear (QC): 6 Additional Goals: 1-Demonstrate ADL Tasks, 2-Verbalize Understanding, 3- ImproveStrength/Hailey 1=Demonstrate adherence to instructed precautions during ADL tasks. 2=Patient will verbalize/demonstrate understanding of assistive devices/modifications for ADL. 3=Patient will improve strength/tolerance for activity to enable patient to perform ADL's. OT Education/Plan Problem List/Assessment Assessment: Decreased Activ Tolerance Discharge Recommendations Plan/Recommendations: Continue POC Therapy Discharge Recommendati: Home & Family Treatment Plan/Plan of Care Treatment,Training & Education: Yes Patient would benefit from OT for education, treatment and training to promote independence in ADL's, mobility, safety and/or upper extremity function for A DL's. Plan of Care: ADL Retraining, Functional Mobility, UE Funct Exercise/Act Treatment Duration: Mar 14, 2020 Frequency: 5 times per week Estimated Hrs Per Day: 1.5 hours per day Agreement: Yes Rehab Potential: Good Time/GCodes Start Time: 10:55 Stop Time: 11:50 Total Time Billed (hr/min): 55 Billed Treatment Time 1, ADL x 4 GERSON YOUNG OT Mar 16, 2020 12:19
--- NOTE | 2020-03-16 14:54 | Occupational Ther Daily Note ---
OT Current Status-Daily Note Subjective No pain reported. Appearance Pt. up in chair. Agreeable to work with OT. Mental Status/Objective Patient Orientation: Person, Place, Time, Situation ADL-Treatment Therapy Code Descriptions/Definitions Functional [place] Measure: 0=Not Assessed/NA 4=Minimal Assistance 1=Total Assistance 5=Supervision or Setup 2=Maximal Assistance 6=Modified [place] 3=Moderate Assistance 7=Complete IndependenceSCALE: Activities may be completed with or without assistive devices. 1-Asygclmsjv-mnszckj completes the activity by him/herself with no assistance from a helper. 5-Set-up or Clean-up Assistance-helper sets up or cleans up; patient completes activity. [place] assists only prior to or following the activity. 4-Supervision or Touching Assistance-helper provides verbal cues and/or touching/steadying and/or contact guard assistance as patient completes activity. Assistance may be provided throughout the activity or intermittently. 3-Partial/Moderate Assistance-helper does LESS THAN HALF the effort. [place] lifts, holds or supports trunk or limbs, but provides less than half the effort. 2-Substantial/Maximal Assistance-helper does MORE THAN HALF the effort. [place] lifts or holds trunk or limbs and provides more than half the effort. 6-Mfrhshrqx-xkjtlx does ALL the effort. Patient does none of the effort to complete the activity. Or, the assistance of 2 or more helpers is required for the patient to complete the activity. If activity was not attempted, code reason: 7-Patient Refused. 9-Not Applicable-not attempted and the patient did not perform the activity before the current illness, exacerbation or injury. 10-Not Attempted due to Environmental Limitations-(lack of equipment, weather restraints, etc.). 88-Not Attempted due to Medical Conditions or Safety Concerns. Eating (QC): 6 (Pt. has just finished lunch in room.) Pt. is agreeable to work with OT. Pt. ambulates with SBA and no LOB to therapy gym. He completes 10 minutes on arm bike at mod resistance, with no difficulty for increased strength with daily tasks. After this, pt. completes 4 bilateral UE exercises x 15 reps each, x 3 lb. dumbbells in all planes for increased independence with daily tasks. Pt. tolerated this well, and is encouraged to continued these at home for continued strength. Pt. ambulated back to room with SBA. All needs met. Education OT Patient Education: Correct positioning, Exercise program, Progress toward Goal/Update tx plan, Purpose of tx/functional activities, Reviewed precautions, Rehab process, Transfer techniques Teaching Recipient: Patient Teaching Methods: Demonstration, Discussion Response to Teaching: Verbalize Understanding, Return Demonstration OT Apartment Leasing Specialist Goals Custodial Goals Time Frame: Mar 29, 2020 Eating (QC): 6 Oral Hygiene (QC): 6 Toileting Hygiene (QC): 6 Shower/Bathe Self (QC): 6 Upper Body Dressing (QC): 6 Lower Body Dressing (QC): 6 On/Off Footwear (QC): 6 Additional Goals: 1-Demonstrate ADL Tasks, 2-Verbalize Understanding, 3-Imp roveStrength/Hailey 1=Demonstrate adherence to instructed precautions during ADL tasks. 2=Patient will verbalize/demonstrate understanding of assistive devices/modifications for ADL. 3=Patient will improve strength/tolerance for activity to enable patient to perform ADL's. OT Education/Plan Problem List/Assessment Assessment: Decreased Activ Tolerance Discharge Recommendations Plan/Recommendations: Continue POC Therapy Discharge Recommendati: Home & Family Treatment Plan/Plan of Care Treatment,Training & Education: Yes Patient would benefit from OT for education, treatment and training to promote independence in ADL's, mobility, safety and/or upper extremity function for ADL's. Plan of Care: ADL Retraining, Functional Mobility, UE Funct Exercise/Act Treatment Duration: Mar 14, 2020 Frequency: 5 times per week Estimated Hrs Per Day: 1.5 hours per day Agreement: Yes Rehab Potential: Good Time/GCodes Start Time: 13:00 Stop Time: 13:40 Total Time Billed (hr/min): 40 Billed Treatment Time 1, Ex x 3 GERSON YOUNG OT Mar 16, 2020 14:54
--- NOTE | 2020-03-16 15:03 | Physical Therapy Daily Note ---
PT Daily Note-Current Subjective Patient in bed pre tx, agrees to PT, has no complaints of pain. Appearance Patient in recliner post tx with nurse call, phone, tray, all needs met. Mental Status Patient Orientation: Normal For Age Transfers SCALE: Activities may be completed with or without assistive devices. 9-Pompiltpwq-eiepruj completes the activity by him/herself with no assistance from a helper. 5-Set-up or Clean-up Assistance-helper sets up or cleans up; patient completes activity. [place] assists only prior to or following the activity. 4-Supervision or Touching Assistance-helper provides verbal cues and/or touching/steadying and/or contact guard assistance as patient completes activity. Assistance may be provided throughout the activity or intermittently. 3-Partial/Moderate Assistance-helper does LESS THAN HALF the effort. [place] lifts, holds or supports trunk or limbs, but provides less than half the effort. 2-Substantial/Maximal Assistance-helper does MORE THAN HALF the effort. [place] lifts or holds trunk or limbs and provides more than half the effort. 1-Pjdhqzfag-kuvabp does ALL the effort. Patient does none of the effort to complete the activity. Or, the assistance of 2 or more helpers is required for the patient to complete the activity. If activity was not attempted, code reason: 7-Patient Refused. 9-Not Applicable-not attempted and the patient did not perform the activity before the current illness, exacerbation or injury. 10-Not Attempted due to Environmental Limitations-(lack of equipment, weather restraints, etc.). 88-Not Attempted due to Medical Conditions or Safety Concerns. Roll Left & Right (QC): 6 Lying to Sitting/Side of Bed(Q: 6 Sit to Stand (QC): 6 Chair/Gvw-bl-Wbrae Xfer(QC): 6 Gait Training Distance: 1200', 800' Walk 10 feet (QC): 6 Walk 50 ft with 2 Turns(QC): 6 Walk 150 ft (QC): 6 Gait Assistive Device: Cane Single Point slow but steady ambulation Treatments ambulation Assessment Current Status: Fair Progress improving endurance PT Short Term Goals Short Term Goals Time Frame: Mar 20, 2020 Sit to lyin Lying to sitting on side of be: 5 Sit to stand: 5 Walk 150 feet: 4 PT Halfway Goals Halfway Goals PT Halfway Goals Time Frame: Mar 27, 2020 Roll Left & Right (QC): 6 Sit to Lying (QC): 6 Lying-Sitting on Side/Bed(QC): 6 Sit to Stand (QC): 6 Chair/Nbs-rj-Viaxf Xfer(QC): 6 Toilet Transfer (QC): 6 Car Transfer (QC): 6 Does the Patient Walk: Yes Walk 10 feet (QC): 6 Walk 50ft with 2 Turns (QC): 6 Walk 150 ft (QC): 6 Walking 10ft on Uneven Surface: 6 1 Step (curb) (QC): 6 4 Steps (QC): 6 12 Steps (QC): 6 Picking up an Object (QC): 5 Does the Pt use WC or Scooter?: No Wheel 50 feet with 2 turns (QC: 9 Wheel 150 feet: 9 PT Plan Problem List Problem List: Activity Tolerance, Functional Strength, Safety, Balance, Gait, Transfer Treatment/Plan Treatment Plan: Continue Plan of Care Treatment Plan: Bed Mobility, Education, Functional Activity Hailey, Functional Strength, Gait, Safety, Therapeutic Exercise, Transfers Treatment Duration: Mar 27, 2020 Frequency: At least 5 of 7 days/Wk (IRF) Estimated Hrs Per Day: 1.5 hours per day Patient and/or Family Agrees t: Yes Safety Risks/Education Patient Education: Gait Training, Transfer Techniques, Correct Positioning, Safety Issues Teaching Recipient: Patient Teaching Methods: Demonstration, Discussion Response to Teaching: Reinforcement Needed Time/GCodes Time In: 1400 Time Out: 1430 Total Billed Treatment Time: 30 Total Billed Treatment 1 visit GT 30' HANG CHENG PT Mar 16, 2020 15:03
--- NOTE | 2020-03-16 18:02 | NUR ---
"RD ASSESSMENT PMHx: hypercholesterolemia; HTN; renal failure; DM; seizure disorder; stroke; PT INTERACTION: Pt was awake and pleasant during consult for MST score. Pt states current appetite is okay. Note avg PO intake 91% x3d, per chart review. Pt states following a regular diet at home, and has no issues with chewing/swallowing food. Pt states no recent issues with n/v/c/d at this time. Note last BM was 03/15, and pt currently on bowel regimen of colace BID, senna BID, and miralax BID, per chart review. Pt stats recent 15# wt loss x1mon. Note unable to determine recent wt hx, per chart review. Pt states current DM management is good. Note unable to determine recent HbA1c, per chart review. Given PO intake and wt hx, pt does not meet criteria for malnutrition per ASPEN guidelines. Est. kcal needs: 7240-9099 kcal | 15-18 kcal/kg Est. Pro needs: 84-105 g Pro | 0.8-1.0 g Pro/kg PES STATEMENT: Given current PO intake, no nutrition diagnosis at this time (NO-1.1). INTERVENTION: Continue with current diet order of Regular diet. Would recommend switching to consistent CHO diet as pt has hx of DM. Offered diet education on DM management, but pt declined at this time. May attempt to offer again prior to discharge. Will continue to follow and reassess as pt needs, intake, and status change. Cheryl FOSTER, MS RD LD [phone] cell"
[2020-03-16 18:27] VITALS: BP 124/76
[2020-03-16] MEDS: amLODIPine 5 MG (NORVASC) TAB PO SCH (20:32)
[2020-03-16] MEDS: FOLIC ACID 1 MG TAB PO SCH (20:32)
[2020-03-17 06:00] VITALS: BP 112/67
[2020-03-17] MEDS: PIOGLITAZONE 30MG (ACTOS) TAB PO SCH (06:31)
[2020-03-17] MEDS: MULTIVIT W/MINERALS TAB (THERAGRAN M) PO SCH (06:31)
--- NOTE | 2020-03-17 08:49 | PM&R Progress Note ---
Subjective HPI/CC On Admission Date Seen by Provider: Mar 17, 2020 Time Seen by Provider: 09:00 Subjective/Events-last exam 03/17/20: Pt doing very well Discharge is planned for tomorrow Brett maneuver very successful for the Pt Shingles pain helpful and will also add magic mouthwash 03/16/20: Pt feels like he is getting shingles again Bowels moved yesterday Up AD LINDA Brett maneuver performed by PT and it is resolved his issue Doing extraordinarily well Feels like he is getting shingles again so started on Valtrex. He had been on suppressive therapy and took himself off of it last month 03/15/20: Patient doing well Brett maneuver initiated today No pain reported BM+ Labs reviewed 03/14/20: Patient doing well Labs normal Vertigo still occurs Accuchecks reviewed BM+ Nystagmus noted when lying down Review of Systems General: Fatigue, Malaise Neurological: Weakness Objective Exam Vital Signs Vital Signs Date Time Temp Pulse Resp B/P (MAP) Pulse Ox O2 Delivery O2 Flow Rate FiO2 03/17/20 20:30 Room Air 03/17/20 18:10 36.6 83 18 121/68 (85) 93 Capillary Refill : General Appearance: No Apparent Distress, WD/WN, Chronically ill, Obese HEENT: PERRL/EOMI, Normal ENT Inspection, Pharynx Normal Neck: Full Range of Motion, Normal Inspection, Non Tender, Supple, Carotid Bruit Respiratory: Chest Non Tender, Lungs Clear, Normal Breath Sounds, No Accessory Muscle Use, No Respiratory Distress Cardiovascular: Regular Rate, Rhythm, No Edema, No Gallop, No JVD, No Murmur, Normal Peripheral Pulses Gastrointestinal: Normal Bowel Sounds, No Organomegaly, No Pulsatile Mass, Non Tender, Soft Back: Normal Inspection, No CVA Tenderness, No Vertebral Tenderness Extremity: Normal Capillary Refill, Normal Inspection, Normal Range of Motion, Non Tender, No Calf Tenderness, No Pedal Edema Neurologic/Psychiatric: Alert, Oriented x3, No Motor/Sensory Deficits, Normal Mood/Affect, net trainer II-XII Norm as Tested, Abnormal Cerebellar Tests, Abnormal Gait, Motor Weakness (generalized weakness 4/5 extremities) Skin: Normal Color, Warm/Dry Lymphatic: No Adenopathy Results/Procedures Lab Patient resulted labs reviewed. FIM Transfers Therapy Code Descriptions/Definitions Functional [place] Measure: 0=Not Assessed/NA 4=Minimal Assistance 1=Total Assistance 5=Supervision or Setup 2=Maximal Assistance 6=Modified [place] 3=Moderate Assistance 7=Complete IndependenceSCALE: Activities may be completed with or without assistive devices. 6-Ngofpuqlfk-vlxfniz completes the activity by him/herself with no assistance from a helper. 5-Set-up or Clean-up Assistance-helper sets up or cleans up; patient completes activity. [place] assists only prior to or following the activity. 4-Supervision or Touching Assistance-helper provides verbal cues and/or touching/steadying and/or contact guard assistance as patient completes activity . Assistance may be provided throughout the activity or intermittently. 3-Partial/Moderate Assistance-helper does LESS THAN HALF the effort. [place] lifts, holds or supports trunk or limbs, but provides less than half the effort. 2-Substantial/Maximal Assistance-helper does MORE THAN HALF the effort. [place] lifts or holds trunk or limbs and provides more than half the effort. 6-Uruhafvxj-ugqoci does ALL the effort. Patient does none of the effort to complete the activity. Or, the assistance of 2 or more helpers is required for the patient to complete the activity. If activity was not attempted, code reason: 7-Patient Refused. 9-Not Applicable-not attempted and the patient did not perform the activity before the current illness, exacerbation or injury. 10-Not Attempted due to Environmental Limitations-(lack of equipment, weather restraints, etc.). 88-Not Attempted due to Medical Conditions or Safety Concerns. Roll Left to Right (QC): 6 Sit to Lying (QC): 6 Sit to Stand (QC): 6 Chair/Iwa-is-Kqqor Xfer(QC): 6 Car Transfer (QC): 4 Gait Training Does the Patient Walk?: Yes Distance: 1200', 800' Walk 10 feet (QC): 6 Walk 50 ft with 2 Turns(QC): 6 Walk 150 ft (QC): 6 Walking 10ft/uneven surface-QC: 4 Gait Persons Needed: 1 Gait Assistive Device: Cane Single Point Wheelchair Training Does the Pt Use a Wheelchair?: No Wheel 50 ft with 2 turns (QC): 9 Wheel 150 ft (QC): 9 Stair Training Stair Training: Handrails/: 1 handrail #of Steps: 12 1 Step (curb) (QC): 6 4 Steps (QC): 6 12 Steps (QC): 6 Stairs: Pattern: Reciprocal Balance Picking up an Object (QC): 3 ADL-Treatment Eating (QC): 6 (Pt. 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 Seizure disorder Bilateral renal transplant Immunocompromise Chronic tremors (mostly R side) HTN Diabetes mellitus Hyperlipidemia Obstructive sleep apnea on cpap COVID-19 pneumonia on 01/23/2020 Recurrent shingles left face with flare 03/16/20 started on Valtrex Plan: IRF protocol Home meds DM checks Check labs Fall risk 03/14/20: Monitor closely Monitor glucometer checks Vertigo management per PT 03/15/20: Brett maneuver Monitor therapy BP BS monitoring 03/16/20: Valtrex for recurrent shingles Monitor balance Fall risk prevention 03/17/20: Valtrex Magic mouthwash DC tomorrow (1) Neurocognitive deficits (2) ZEB on CPAP (3) Renal transplant recipient (4) Immunosuppressed status (5) Glomerular disease (6) Obesity (7) Diabetes (8) Hypertension (9) Hyperlipemia (10) History of hemorrhagic stroke with residual hemiparesis (11) Tremor (12) Post-acute COVID-19 syndrome (13) Seizure disorder JULIETTE FIERRO DO Mar 17, 2020 08:49
[2020-03-17] MEDS: PANTOPRAZOLE 40 MG (PROTONIX) TAB PO SCH (09:48)
[2020-03-17] MEDS: LEVETIRACETAM 1,000 MG (KEPPRA) TABLET PO SCH ×2 (09:48→20:50)
[2020-03-17] MEDS: predniSONE 5 MG TAB PO SCH (09:48)
[2020-03-17] MEDS: MAGNESIUM OXIDE (MAG-OX)400 MG TAB PO SCH ×2 (09:48→20:50)
[2020-03-17] MEDS: ASPIRIN E.C. 81 MG (ECOTRIN) TAB PO SCH (09:48)
[2020-03-17] MEDS: CALCIUM CARBONATE 600 MG (CALCARB) TAB PO SCH (09:48)
[2020-03-17] MEDS: VALACYCLOVIR 500 MG TAB (VALTREX) PO SCH ×3 (09:48→20:50)
[2020-03-17] MEDS: lisINopril 20 MG (PRINIVIL) TABLET PO SCH (09:49)
[2020-03-17] MEDS: LORATADINE (CLARITIN) 10 MG TAB PO SCH (09:49)
[2020-03-17] MEDS: THIAMINE 100 MG (VITAMIN B-1) TAB PO SCH (09:49)
[2020-03-17] MEDS: FLUTICASONE NASAL SPRAY (FLONASE) 16 GM BTL NS SCH (09:53)
[2020-03-17] MEDS: MYCOPHENOLATE 250 MG CAPSULE PO SCH ×2 (09:58→20:51)
[2020-03-17] MEDS: FLUoxetine HCL 20 MG (PROzac) CAP PO SCH (10:07)
[2020-03-17] MEDS: DOCUSATE SODIUM 100 MG (COLACE) CAP PO SCH ×2 (10:08→20:55)
[2020-03-17] MEDS: SENNA W/DOCUSATE (SENOKOT S) TABLET PO SCH ×2 (10:08→20:55)
[2020-03-17] MEDS: polyethylene glycoL POWDER 17 GM (MIRALAX) PACK PO SCH ×2 (10:08→20:55)
[2020-03-17] MEDS: TACROLIMUS 1 MG (PROGRAF) CAP NON-FORMULARY PO SCH ×2 (10:08→20:50)
--- NOTE | 2020-03-17 11:53 | Occupational Ther Daily Note ---
OT Current Status-Daily Note Subjective No pain reported. No dizziness noted. Appearance Pt. up independently in room when OT entered room. Mental Status/Objective Patient Orientation: Person, Place, Time, Situation ADL-Treatment Therapy Code Descriptions/Definitions Functional [place] Measure: 0=Not Assessed/NA 4=Minimal Assistance 1=Total Assistance 5=Supervision or Setup 2=Maximal Assistance 6=Modified [place] 3=Moderate Assistance 7=Complete IndependenceSCALE: Activities may be completed with or without assistive devices. 3-Lxqkedmgmu-zugqeay completes the activity by him/herself with no assistance from a helper. 5-Set-up or Clean-up Assistance-helper sets up or cleans up; patient completes activity. [place] assists only prior to or following the activity. 4-Supervision or Touching Assistance-helper provides verbal cues and/or touching/steadying and/or contact guard assistance as patient completes activity. Assistance may be provided throughout the activity or intermittently. 3-Partial/Moderate Assistance-helper does LESS THAN HALF the effort. [place] lifts, holds or supports trunk or limbs, but provides less than half the effort. 2-Substantial/Maximal Assistance-helper does MORE THAN HALF the effort. [place] lifts or holds trunk or limbs and provides more than half the effort. 2-Iaussyofe-ljverr does ALL the effort. Patient does none of the effort to complete the activity. Or, the assistance of 2 or more helpers is required for the patient to complete the activity. If activity was not attempted, code reason: 7-Patient Refused. 9-Not Applicable-not attempted and the patient did not perform the activity before the current illness, exacerbation or injury. 10-Not Attempted due to Environmental Limitations-(lack of equipment, weather restraints, etc.). 88-Not Attempted due to Medical Conditions or Safety Concerns. Eating (QC): 6 Oral Hygiene (QC): 6 Shower/Bathe Self (QC): 6 Upper Body Dressing (QC): 6 Lower Body Dressing (QC): 6 On/Off Footwear: 6 Toileting Hygiene (QC): 6 Toilet Transfer (QC): 6 Other Treatment Pt. is able to retrieve clothing from closet. He is able to shower self and dress self with no issues. Pt. ambulated independently out in dining area with no AE, and is able to wash hands at sink, and get ice from ice machine. Pt. ambulates back to room. All needs met. Pt. ready for discharge tomorrow. Education OT Patient Education: Correct positioning, Modified ADL techniques, Progress toward Goal/Update tx plan, Purpose of tx/functional activities, Reviewed precautions, Rehab process, Transfer techniques Teaching Recipient: Patient Teaching Methods: Demonstration, Discussion Response to Teaching: Verbalize Understanding, Return Demonstration OT Fdc Goals Human Resources Mgr Goals Time Frame: Mar 29, 2020 Eating (QC): 6 Oral Hygiene (QC): 6 Toileting Hygiene (QC): 6 Shower/Bathe Self (QC): 6 Upper Body Dressing (QC): 6 Lower Body Dressing (QC): 6 On/Off Footwear (QC): 6 Additional Goals: 1-Demonstrate ADL Tasks, 2-Verbalize Understanding, 3- ImproveStrength/[place] 1=Demonstrate adherence to instructed precautions during ADL tasks. 2=Patient will verbalize/demonstrate understanding of assistive devices/modifications for ADL. 3=Patient will improve strength/tolerance for activity to enable patient to perform ADL's. OT Education/Plan Discharge Recommendations Plan/Recommendations: Follow-up Planned Therapy Discharge Recommendati: Home & Family Treatment Plan/Plan of Care Treatment,Training & Education: Yes Patient would benefit from OT for education, treatment and training to promote independence in ADL's, mobility, safety and/or upper extremity function for ADL's. Plan of Care: ADL Retraining, Functional Mobility, UE Funct Exercise/Act Treatment Duration: Mar 14, 2020 Frequency: At least 5 of 7 days/Wk (IRF) Estimated Hrs Per Day: 1.5 hours per day Agreement: Yes Rehab Potential: Good Time/GCodes Start Time: 10:45 Stop Time: 11:30 Total Time Billed (hr/min): 45 Billed Treatment Time 1, ADL x 3 GERSON YOUNG OT Mar 17, 2020 11:53
[2020-03-17] MEDS ORDERED: MAGIC MOUTHWASH, ADULT 155 ML BOTTLE PO SCH (13:00)
[2020-03-17] MEDS: MAGIC MOUTHWASH (ADULT) PO SCH ×12 (13:48→20:50)
--- NOTE | 2020-03-17 14:19 | NUR ---
CM/SS PATIENT CARE CONFERENCE and DISCHARGE PLANNING Patient and team are in agreement for discharge home tomorrow. PT/Bharath will come in a.m. for another vestibular intervention prior to patient's departure. OUTPATIENT THERAPY: Vestibular Therapy has been coordinated with [facility], initial assessment 03/24/20 at 1330. Patient's discharge instructions have been updated to reflect his multiple follow up appointments along with this therapy. Patient was offered [facility] as well as [facility] for this specialty, he selected [facility] due to it being in closer proximity to his home. Referral initiated, will provide orders once available. IMM2 presented, reviewed, signed, charted. Discharge has been discussed x 3 days with patient and he indicates his readiness to return to his home as before.
--- NOTE | 2020-03-17 14:42 | Occupational Ther Daily Note ---
OT Current Status-Daily Note Subjective No pain reported. Mental Status/Objective Patient Orientation: Person, Place, Time, Situation ADL-Treatment Therapy Code Descriptions/Definitions Functional [place] Measure: 0=Not Assessed/NA 4=Minimal Assistance 1=Total Assistance 5=Supervision or Setup 2=Maximal Assistance 6=Modified [place] 3=Moderate Assistance 7=Complete IndependenceSCALE: Activities may be completed with or without assistive devices. 7-Yamazjzjes-jigzwun completes the activity by him/herself with no assistance from a helper. 5-Set-up or Clean-up Assistance-helper sets up or cleans up; patient completes activity. Spray assists only prior to or following the activity. 4-Supervision or Touching Assistance-helper provides verbal cues and/or touching/steadying and/or contact guard assistance as patient completes activity. Assistance may be provided throughout the activity or intermittently. 3-Partial/Moderate Assistance-helper does LESS THAN HALF the effort. Spray lifts, holds or supports trunk or limbs, but provides less than half the effort. 2-Substantial/Maximal Assistance-helper does MORE THAN HALF the effort. Spray lifts or holds trunk or limbs and provides more than half the effort. 3-Utcnnymcv-mhfmjl does ALL the effort. Patient does none of the effort to complete the activity. Or, the assistance of 2 or more helpers is required for the patient to complete the activity. If activity was not attempted, code reason: 7-Patient Refused. 9-Not Applicable-not attempted and the patient did not perform the activity before the current illness, exacerbation or injury. 10-Not Attempted due to Environmental Limitations-(lack of equipment, weather restraints, etc.). 88-Not Attempted due to Medical Conditions or Safety Concerns. Other Treatment Pt. agrees to work with OT. Pt. ambulates independently without assistive device to therapy gym. He completes 10 minutes on arm bike at mod resistance for increased strengthening. Pt. then tolerated 7 bilateral UE exercises x 3 lb. dumbbells, x 15 reps each in all planes for continued strengthening as well. Tolerated this with brief intermittent rest breaks. Pt. then completed 5 minutes on pam activity, with reciprocal movements back and forth for increased stretch. Pt. verbalizes that this "feels good." Tolerated this well. Pt. ambualated to therapy kitchen independently and completed kitchen task of making himself glass of water. Pt. ambulated back to therapy gym and waited for PT session. All needs met. Education OT Patient Education: Correct positioning, Exercise program, Progress toward Goal/Update tx plan, Purpose of tx/functional activities, Reviewed precautions, Rehab process, Transfer techniques Teaching Recipient: Patient Teaching Methods: Demonstration, Discussion Response to Teaching: Verbalize Understanding, Return Demonstration OT Alf Goals Alf Goals Time Frame: Mar 29, 2020 Eating (QC): 6 Oral Hygiene (QC): 6 Toileting Hygiene (QC): 6 Shower/Bathe Self (QC): 6 Upper Body Dressing (QC): 6 Lower Body Dressing (QC): 6 On/Off Footwear (QC): 6 Additional Goals: 1-Demonstrate ADL Tasks, 2-Verbalize Understanding, 3-ImproveStrength/Hailey 1=Demonstrate adherence to instructed precautions during ADL tasks. 2=Patient will verbalize/demonstrate understanding of assistive devices/modifications for ADL. 3=Patient will improve strength/tolerance for activity to enable patient to perform ADL's. OT Education/Plan Problem List/Assessment Assessment: No Skilled OT Needs ID'd Discharge Recommendations Plan/Recommendations: Follow-up Planned Therapy Discharge Recommendati: Home & Family Treatment Plan/Plan of Care Treatment,Training & Education: Yes Patient would benefit from OT for education, treatment and training to promote independence in ADL's, mobility, safety and/or upper extremity function for ADL's. Plan of Care: ADL Retraining, Functional Mobility, UE Funct Exercise/Act Treatment Duration: Mar 14, 2020 Frequency: At least 5 of 7 days/Wk (IRF) Estimated Hrs Per Day: 1.5 hours per day Agreement: Yes Rehab Potential: Good Time/GCodes Start Time: 13:00 Stop Time: 13:45 Total Time Billed (hr/min): 45 Billed Treatment Time 1, Ex x 3 GERSON YOUNG OT Mar 17, 2020 14:42
[2020-03-17] MEDS ORDERED: AMLO-251 PO (14:51)
[2020-03-17] MEDS ORDERED: SEMA0.25 SQ (14:51)
--- NOTE | 2020-03-17 14:52 | NUR ---
MED REC WAS ENTERED BY A NURSE OVER THE WEEKEND, AFTER SPEAKING WITH THE PATIENT'S THESE ARE THE CHANGES I HAVE MADE: PATIENT GETS PRESCRIBED 10MG OF AMLODIPINE. HE BREAKS THOSE IN HALF AND TAKES 5MG DAILY. TAKES FLONASE PRN. PT TAKES PROMETHAZINE 2.5ML ALTHOUGH HE IS PRESCRIBED 5ML DUE TO 5ML MAKING HIM SLEEPY. PT GETS OZEMPIC 0.25MG/ML SHOTS WEEKLY AT 1030 ON SATURDAYS. HE GETS THEM THROUGH DR. [facility] IN [place]. HE IS NOW TAKING 0.5MG RATHER THAN THE 0.25MG. OTC: BIOTIN ECOTRIN VITAMIN B1 CETIRIZINE CALCIUM MULTIVITAMIN
--- NOTE | 2020-03-17 15:31 | Physical Therapy Daily Note ---
PT Daily Note-Current Subjective Pt is in bed and agreeable to beginning PT. He notes feeling dizzy with supine to sit. Mental Status Patient Orientation: Person, Place, Time, Situation Transfers SCALE: Activities may be completed with or without assistive devices. 6-Ntuovaehrf-jcbdkgo completes the activity by him/herself with no assistance from a helper. 5-Set-up or Clean-up Assistance-helper sets up or cleans up; patient completes activity. [place] assists only prior to or following the activity. 4-Supervision or Touching Assistance-helper provides verbal cues and/or touching/steadying and/or contact guard assistance as patient completes activity. Assistance may be provided throughout the activity or intermittently. 3-Partial/Moderate Assistance-helper does LESS THAN HALF the effort. [place] lifts, holds or supports trunk or limbs, but provides less than half the effort. 2-Substantial/Maximal Assistance-helper does MORE THAN HALF the effort. [place] lifts or holds trunk or limbs and provides more than half the effort. 8-Xwsjknfvn-ukdssg does ALL the effort. Patient does none of the effort to complete the activity. Or, the assistance of 2 or more helpers is required for the patient to complete the activity. If activity was not attempted, code reason: 7-Patient Refused. 9-Not Applicable-not attempted and the patient did not perform the activity before the current illness, exacerbation or injury. 10-Not Attempted due to Environmental Limitations-(lack of equipment, weather restraints, etc.). 88-Not Attempted due to Medical Conditions or Safety Concerns. Roll Left & Right (QC): 6 Sit to Lying (QC): 6 Lying to Sitting/Side of Bed(Q: 6 Sit to Stand (QC): 6 Chair/Shi-ek-Osgym Xfer(QC): 6 Toilet Transfer (QC): 6 Car Transfer (QC): 6 Gait Training Does the Patient Walk?: Yes Distance: 1500ft Walk 10 feet (QC): 6 Walk 50 ft with 2 Turns(QC): 6 Walk 150 ft (QC): 6 Walking 10ft/uneven surface-QC: 6 Gait Persons Needed: 0 Gait Assistive Device: None Wheelchair Training Does the Pt Use a Wheelchair?: No Stair Training Stair Training: Handrails/: No handrail #of Steps: 24 1 Step (curb) (QC): 6 4 Steps (QC): 6 12 Steps (QC): 6 Stairs: Pattern: Reciprocal Balance Picking up an Object (QC): 6 Exercises Supine Ex: LE Protocol Supine Reps: [address] Ex=Flex, Abd, Ext, Marching, Mini squats, Retro gait, Side steps, Step-ups, Stepping over objects Standing Reps: 20 Neuromuscular Performed the Hallpike-Med test for BPPV. Pt exhibited (R) torsional nystagmus with supine head extension and (R) rotation. Performed the Brett maneuver, stopping at least 1 minute at each check point. Pt was able to sit up, stand, and walk without dizziness Repeated the Hallpike-Rosser test with no nystagmus elicited. Treatments Performed standing habituation exercises for balance and stability progression. Assessment Current Status: Good Progress Pt had a positive finding for BPPV, was treated with the Brett maneuver, and was able to return to safe ambulation and transfers without further dizziness. PT Short Term Goals Short Term Goals Time Frame: Mar 20, 2020 Sit to lyin Lying to sitting on side of be: 5 Sit to stand: 5 Walk 150 feet: 4 PT Prison Goals Comfort Station Attendant Goals PT Comfort Station Attendant Goals Time Frame: Mar 27, 2020 Roll Left & Right (QC): 6 Sit to Lying (QC): 6 Lying-Sitting on Side/Bed(QC): 6 Sit to Stand (QC): 6 Chair/Fal-zf-Ffqhn Xfer(QC): 6 Toilet Transfer (QC): 6 Car Transfer (QC): 6 Does the Patient Walk: Yes Walk 10 feet (QC): 6 Walk 50ft with 2 Turns (QC): 6 Walk 150 ft (QC): 6 Walking 10ft on Uneven Surface: 6 1 Step (curb) (QC): 6 4 Steps (QC): 6 12 Steps (QC): 6 Picking up an Object (QC): 5 Does the Pt use WC or Scooter?: No Wheel 50 feet with 2 turns (QC: 9 Wheel 150 feet: 9 PT Plan Treatment/Plan Treatment Plan: Continue Plan of Care Treatment Plan: Bed Mobility, Education, Functional Activity Hailey, Functional Strength, Gait, Safety, Therapeutic Exercise, Transfers Treatment Duration: Mar 27, 2020 Frequency: At least 5 of 7 days/Wk (IRF) Estimated Hrs Per Day: 1.5 hours per day Patient and/or Family Agrees t: Yes Time/GCodes Time In: 900 Time Out: 1001 Total Billed Treatment Time: 60 Total Billed Treatment 1, gt x2 30, ex 15, nm 15 ELOY BAEZ PT Mar 17, 2020 15:31
--- NOTE | 2020-03-17 15:35 | Physical Therapy Daily Note ---
PT Daily Note-Current Subjective No further reports of dizziness since the AM treatment. Mental Status Patient Orientation: Person, Place, Time, Situation Transfers SCALE: Activities may be completed with or without assistive devices. 5-Yrknidzpac-vltsqeq completes the activity by him/herself with no assistance from a helper. 5-Set-up or Clean-up Assistance-helper sets up or cleans up; patient completes activity. [place] assists only prior to or following the activity. 4-Supervision or Touching Assistance-helper provides verbal cues and/or touching/steadying and/or contact guard assistance as patient completes activity. Assistance may be provided throughout the activity or intermittently. 3-Partial/Moderate Assistance-helper does LESS THAN HALF the effort. [place] lifts, holds or supports trunk or limbs, but provides less than half the effort. 2-Substantial/Maximal Assistance-helper does MORE THAN HALF the effort. [place] lifts or holds trunk or limbs and provides more than half the effort. 2-Hxapkguad-tcicso does ALL the effort. Patient does none of the effort to complete the activity. Or, the assistance of 2 or more helpers is required for the patient to complete the activity. If activity was not attempted, code reason: 7-Patient Refused. 9-Not Applicable-not attempted and the patient did not perform the activity before the current illness, exacerbation or injury. 10-Not Attempted due to Environmental Limitations-(lack of equipment, weather restraints, etc.). 88-Not Attempted due to Medical Conditions or Safety Concerns. Roll Left & Right (QC): 6 Sit to Lying (QC): 6 Lying to Sitting/Side of Bed(Q: 6 Sit to Stand (QC): 6 Chair/Xhd-sk-Rqshz Xfer(QC): 6 Toilet Transfer (QC): 6 Car Transfer (QC): 6 Gait Training Does the Patient Walk?: Yes Distance: 1500+ft Walk 10 feet (QC): 6 Walk 50 ft with 2 Turns(QC): 6 Walk 150 ft (QC): 6 Walking 10ft/uneven surface-QC: 6 Gait Persons Needed: 0 Gait Assistive Device: None Wheelchair Training Does the Pt Use a Wheelchair?: No Stair Training Stair Training: Handrails/: No handrail #of Steps: 12 1 Step (curb) (QC): 6 4 Steps (QC): 6 12 Steps (QC): 6 Stairs: Pattern: Reciprocal Balance Picking up an Object (QC): 6 Exercises Standing: Floor clock, 3 way Ex=Flex, Abd, Ext, Marching, Mini squats, Retro gait Standing Reps: 20 Neuromuscular Rechecked the Hallpike-[place] test with no evidence of nystagmus or dizziness. Assessment Current Status: Good Progress Pt is planning to discharge tomorrow. I am planning to come and issue a home program for vestibular rehabilitation in the AM. PT Short Term Goals Short Term Goals Time Frame: Mar 20, 2020 Sit to lyin Lying to sitting on side of be: 5 Sit to stand: 5 Walk 150 feet: 4 PT Vice President Lending Goals Vice President Lending Goals PT Halfway Goals Time Frame: Mar 27, 2020 Roll Left & Right (QC): 6 Sit to Lying (QC): 6 Lying-Sitting on Side/Bed(QC): 6 Sit to Stand (QC): 6 Chair/Bmg-zs-Zutmx Xfer(QC): 6 Toilet Transfer (QC): 6 Car Transfer (QC): 6 Does the Patient Walk: Yes Walk 10 feet (QC): 6 Walk 50ft with 2 Turns (QC): 6 Walk 150 ft (QC): 6 Walking 10ft on Uneven Surface: 6 1 Step (curb) (QC): 6 4 Steps (QC): 6 12 Steps (QC): 6 Picking up an Object (QC): 5 Does the Pt use WC or Scooter?: No Wheel 50 feet with 2 turns (QC: 9 Wheel 150 feet: 9 PT Plan Treatment/Plan Treatment Plan: Continue Plan of Care Treatment Plan: Bed Mobility, Education, Functional Activity Hailey, Functional Strength, Gait, Safety, Therapeutic Exercise, Transfers Treatment Duration: Mar 27, 2020 Frequency: At least 5 of 7 days/Wk (IRF) Estimated Hrs Per Day: 1.5 hours per day Patient and/or Family Agrees t: Yes Time/GCodes Time In: 1345 Time Out: 1415 Total Billed Treatment Time: 30 Total Billed Treatment 1, gt x2 30 ELOY BAEZ PT Mar 17, 2020 15:35
[2020-03-17 18:10] VITALS: BP 121/68
[2020-03-17] MEDS: FOLIC ACID 1 MG TAB PO SCH (20:50)
[2020-03-17] MEDS: amLODIPine 5 MG (NORVASC) TAB PO SCH (20:50)
[2020-03-18 06:02] VITALS: BP 112/57
[2020-03-18] MEDS: MULTIVIT W/MINERALS TAB (THERAGRAN M) PO SCH (06:15)
[2020-03-18] MEDS: PIOGLITAZONE 30MG (ACTOS) TAB PO SCH (06:15)
[2020-03-18] MEDS: CALCIUM CARBONATE 600 MG (CALCARB) TAB PO SCH (08:38)
[2020-03-18] MEDS: LEVETIRACETAM 1,000 MG (KEPPRA) TABLET PO SCH (08:38)
[2020-03-18] MEDS: VALACYCLOVIR 500 MG TAB (VALTREX) PO SCH (08:38)
[2020-03-18] MEDS: FLUoxetine HCL 20 MG (PROzac) CAP PO SCH (08:38)
[2020-03-18] MEDS: lisINopril 20 MG (PRINIVIL) TABLET PO SCH (08:38)
[2020-03-18] MEDS: ASPIRIN E.C. 81 MG (ECOTRIN) TAB PO SCH (08:38)
[2020-03-18] MEDS: predniSONE 5 MG TAB PO SCH (08:39)
[2020-03-18] MEDS: THIAMINE 100 MG (VITAMIN B-1) TAB PO SCH (08:39)
[2020-03-18] MEDS: MAGNESIUM OXIDE (MAG-OX)400 MG TAB PO SCH (08:39)
[2020-03-18] MEDS: PANTOPRAZOLE 40 MG (PROTONIX) TAB PO SCH (08:39)
[2020-03-18] MEDS: FLUTICASONE NASAL SPRAY (FLONASE) 16 GM BTL NS SCH (08:40)
[2020-03-18] MEDS: TACROLIMUS 1 MG (PROGRAF) CAP NON-FORMULARY PO SCH (08:40)
[2020-03-18] MEDS: polyethylene glycoL POWDER 17 GM (MIRALAX) PACK PO SCH (08:41)
[2020-03-18] MEDS: DOCUSATE SODIUM 100 MG (COLACE) CAP PO SCH (08:41)
[2020-03-18] MEDS: MAGIC MOUTHWASH (ADULT) PO SCH ×4 (08:42)
[2020-03-18] MEDS: MYCOPHENOLATE 250 MG CAPSULE PO SCH (08:44)
[2020-03-18] MEDS: LORATADINE (CLARITIN) 10 MG TAB PO SCH (08:46)
[2020-03-18] MEDS: SENNA W/DOCUSATE (SENOKOT S) TABLET PO SCH (09:26)
[2020-03-18] MEDS ORDERED: VALA500T4 PO (09:34)
--- NOTE | 2020-03-18 09:36 | Discharge Summary ---
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 Seizure disorder Bilateral renal transplant Immunocompromise Chronic tremors (mostly R side) HTN Diabetes mellitus Hyperlipidemia Obstructive sleep apnea on cpap COVID-19 pneumonia on 01/23/2020 Recurrent shingles left face with flare 03/16/20 started on Valtrex Plan: IRF protocol Home meds DM checks Check labs Fall risk 03/14/20: Monitor closely Monitor glucometer checks Vertigo management per PT 03/15/20: Brett maneuver Monitor therapy BP BS monitoring 03/16/20: Valtrex for recurrent shingles Monitor balance Fall risk prevention 03/17/20: Valtrex Magic mouthwash DC tomorrow (1) Neurocognitive deficits (2) ZEB on CPAP (3) Renal transplant recipient (4) Immunosuppressed status (5) Glomerular disease (6) Obesity (7) Diabetes (8) Hypertension (9) Hyperlipemia (10) History of hemorrhagic stroke with residual hemiparesis (11) Tremor (12) Post-acute COVID-19 syndrome (13) Seizure disorder Discharge Summary Discharge Physical Examination Allergies: Coded Allergies: Iodinated Contrast Media (Verified Allergy, Unknown, 03/13/20) Hdhjxrq-Rum-Lyb Reductase Inhibitor (Verified Allergy, Unknown, 03/13/20) Sulfa (Sulfonamide Antibiotics) (Verified Allergy, Unknown, 03/13/20) adhesive (Verified Allergy, Unknown, 03/13/20) aspirin (Verified Allergy, Unknown, 03/13/20) benztropine (Verified Allergy, Unknown, 03/13/20) cephalexin (Verified Allergy, Unknown, 03/13/20) clarithromycin (Verified Allergy, Unknown, 03/13/20) colchicine (Verified Allergy, Unknown, 03/13/20) diazepam (Verified Allergy, Unknown, 03/13/20) dipyridamole (Verified Allergy, Unknown, 03/13/20) divalproex sodium (Verified Allergy, Unknown, 03/13/20) lamotrigine (Verified Allergy, Unknown, 03/13/20) lorazepam (Verified Allergy, Unknown, 03/13/20) olanzapine (Verified Allergy, Unknown, 03/13/20) ondansetron (Verified Allergy, Unknown, 03/13/20) phenytoin (Verified Allergy, Unknown, 03/13/20) quetiapine (Verified Allergy, Unknown, 03/13/20) Vitals & I&Os Vital Signs Date Time Temp Pulse Resp B/P (MAP) Pulse Ox O2 Delivery O2 Flow Rate FiO2 03/18/20 10:50 36.5 72 18 112/57 94 Room Air General Appearance: Alert, Oriented X3, Cooperative Respiratory: Clear to Auscultation Neuro: Normal Gait, Normal Speech, Strength at 5/5 X4 Ext Psych/Mental Status: Mental Status NL Hospital Course Was the Problem List Reviewed?: Yes Hospital course: Pt had a brief hospital course, he was admitted for severe vertigo and unable to ambulate, Pt was placed in Brett maneuvers by PT, all home medications were restarted, he was started on Valtrex for shingles pain of the left face and overall he felt well enough to go home with outpatient PT Labs (last 24 hrs) Laboratory Tests 03/13/20 15:46: Glucometer 129H 03/14/20 05:32: White Blood Count 7.7, Red Blood Count 5.04, Hemoglobin 14.1, Hematocrit 43, Mean Corpuscular Volume 84, Mean Corpuscular Hemoglobin 28, Mean Corpuscular Hemoglobin Concent 33, Red Cell Distribution Width 14.5, Platelet Count 226, Mean Platelet Volume 9.9, Immature Granulocyte % (Auto) 0, Neutrophils (%) (Auto) 51, Lymphocytes (%) (Auto) 40, Monocytes (%) (Auto) 8, Eosinophils (%) (Auto) 1, Basophils (%) (Auto) 0, Neutrophils # (Auto) 3.9, Lymphocytes # (Auto) 3.1, Monocytes # (Auto) 0.6, Eosinophils # (Auto) 0.1, Basophils # (Auto) 0.0, Immature Granulocyte # (Auto) 0.0, Sodium Level 138, Potassium Level 3.9, Chloride Level 105, Carbon Dioxide Level 22, Anion Gap 11, Blood Urea Nitrogen 13, Creatinine 1.16, Estimat Glomerular Filtration Rate > 60, BUN/Creatinine Ratio 11, Glucose Level 118H, Calcium Level 9.4, Corrected Calcium 9.2, Total Bilirubin 0.6, Aspartate Amino Transf (AST/SGOT) 17, Alanine Aminotransferase (ALT/SGPT) 29, Alkaline Phosphatase 97, Total Protein 6.7, Albumin 4.2 03/14/20 15:30: Glucometer 130H 03/15/20 06:29: Glucometer 105 03/15/20 17:41: Glucometer 111H 03/16/20 05:50: Glucometer 99 03/16/20 16:45: Glucometer 115H 03/17/20 05:38: Glucometer 111H 03/17/20 11:40: Glucometer 131H 03/17/20 16:31: Glucometer 121H 03/18/20 05:54: Glucometer 117H Pending Labs Laboratory Tests 03/13/20 15:46: Glucometer 129 03/14/20 05:32: White Blood Count 7.7, Red Blood Count 5.04, Hemoglobin 14.1, Hematocrit 43, Mean Corpuscular Volume 84, Mean Corpuscular Hemoglobin 28, Mean Corpuscular Hemoglobin Concent 33, Red Cell Distribution Width 14.5, Platelet Count 226, Mean Platelet Volume 9.9, Immature Granulocyte % (Auto) 0, Neutrophils (%) (Auto) 51, Lymphocytes (%) (Auto) 40, Monocytes (%) (Auto) 8, Eosinophils (%) (Auto) 1, Basophils (%) (Auto) 0, Neutrophils # (Auto) 3.9, Lymphocytes # (Auto) 3.1, Monocytes # (Auto) 0.6, Eosinophils # (Auto) 0.1, Basophils # (Auto) 0.0, Immature Granulocyte # (Auto) 0.0, Sodium Level 138, Potassium Level 3.9, Chloride Level 105, Carbon Dioxide Level 22, Anion Gap 11, Blood Urea Nitrogen 13, Creatinine 1.16, Estimat Glomerular Filtration Rate > 60, BUN/Creatinine Ratio 11, Glucose Level 118, Calcium Level 9.4, Corrected Calcium 9.2, Total Bilirubin 0.6, Aspartate Amino Transf (AST/SGOT) 17, Alanine Aminotransferase (ALT/SGPT) 29, Alkaline Phosphatase 97, Total Protein 6.7, Albumin 4.2 03/14/20 15:30: Glucometer 130 03/15/20 06:29: Glucometer 105 03/15/20 17:41: Glucometer 111 03/16/20 05:50: Glucometer 99 03/16/20 16:45: Glucometer 115 03/17/20 05:38: Glucometer 111 03/17/20 11:40: Glucometer 131 03/17/20 16:31: Glucometer 121 03/18/20 05:54: Glucometer 117 Discharge Home Medications: Active Scripts Active Valtrex (Valacyclovir HCl) 500 Mg Tablet 1,000 Mg PO TID Reported Ozempic (Semaglutide) 0.25 Mg/0.2 Ml Pen.injctr 0.5 Mg SQ SUNDAY TAKES AT 10:30 ON SATURDAYS Amlodipine Besylate 10 Mg Tablet 5 Mg PO DAILY TAKES 1/2 (10MG) TABLET Folic Acid 1 Mg Tablet 1 Mg PO HS Calcium Carbonate 600 Mg Tablet 600 Mg PO DAILY Flonase Allergy Relief (Fluticasone Propionate) 9.9 Ml [place].susp 2 Sprays NS DAILY PRN Promethazine HCl 6.25 Mg/5 Ml Syrup 2.5 Ml PO Q6H PRN Vitamin B-1 (Thiamine HCl) 100 Mg Tablet 100 Mg PO DAILY Prograf (Tacrolimus) 1 Mg Capsule 2 Mg PO BID Prednisone 5 Mg Tablet 5 Mg PO DAILY Actos (Pioglitazone HCl) 15 Mg Tablet 15 Mg PO DAILY Protonix (Pantoprazole Sodium) 40 Mg Tablet. 40 Mg PO DAILY Cellcept (Mycophenolate Mofetil) 250 Mg Capsule 250 Mg PO HS Cellcept (Mycophenolate Mofetil) 250 Mg Capsule 500 Mg PO DAILY Multivitamin 1 Each Tablet 1 Each PO DAILY Melatonin 3 mg Tablet (Melatonin/Pyridoxine HCl (B6)) 1 Each Tablet 2 Each PO HS PRN Meclizine HCl 25 Mg Tablet 25 Mg PO TID PRN Lisinopril 20 Mg Tablet 20 Mg PO DAILY Keppra (Levetiracetam) 1,000 Mg Tablet 2,000 Mg PO BID Prozac (Fluoxetine HCl) 40 Mg Capsule 40 Mg PO DAILY Zyrtec (Cetirizine HCl) 10 Mg Tablet 10 Mg PO DAILY Aspirin EC (Aspirin) 81 Mg Tablet.dr 81 Mg PO DAILY Abilify (Aripiprazole) 10 Mg Tablet 10 Mg PO DAILY Instructions to patient/family Please see electronic discharge instructions given to patient. Diagnosis/Problems Diagnosis/Problems (1) Neurocognitive deficits (2) ZEB on CPAP (3) Renal transplant recipient (4) Immunosuppressed status (5) Glomerular disease (6) Obesity (7) Diabetes (8) Hypertension (9) Hyperlipemia (10) History of hemorrhagic stroke with residual hemiparesis (11) Tremor (12) Post-acute COVID-19 syndrome (13) Seizure disorder Clinical Quality Measures DVT/VTE Risk/Contraindication: Contraindications-Pharm: Other *list below* Other: hemorrhagic CVA hx JULIETTE FIERRO DO Mar 18, 2020 09:36
[2020-03-18] MEDS ORDERED: RELABEL FOR HOME USE MC SCH (09:45)
--- NOTE | 2020-03-18 10:15 | NUR ---
CM/SS DISCHARGE Patient is dressed, packed, and ready for discharge back home with his family. Manager Environmental Health And Safety updated him about his [facility] appointment and that all his follow up appointments are listed on his discharge instructions for easy reference. Unit RN aware of timelines and family picker tender helper around 1030.
[2020-03-18 10:50] VITALS: BP 112/57
--- NOTE | 2020-03-18 10:50 | NUR ---
RADHA PRINCE demonstrates understanding of discharge instructions and accurately returns instructions upon questioning. Copy of Post-Discharge Instructions given to PT. RADHA PRINCE is able to manage continuing needs after discharge. Patients belongings returned to PT. Patient discharged from 231-1 on 03/18/20 at 1050. RADHA PRINCE left floor via W/C, accompanied by AND AUTO.
--- NOTE | 2020-03-18 11:49 | Therapy Team Discharge Summary ---
Therapy Discharge Summary Discharge Recommendations Date of Discharge Physical Therapy Patient came to rehab with neuro deficits. Upon evaluation patient performed bed mobility with SBA, supine <-> sit SBA, sit <-> stand SBA, transfers SBA, car transfer SBA, ambulated 300' with a rolling walker with SBA (including 50' with at least 2 turns of 90 degrees and 10' over an uneven surface), and could go up and down 4 steps using 2 handrails with min assist, and could pick up attendant an object from the floor with min assist. Patient has been performing bed mobility and transfer training, balance and endurance training, functional strengthening, stair training, gait training, and education. 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 Now, patient performs bed mobility and transfers with independence, independent with car transfers, ambulates 1500' without an assistive device with independence (including 50' with at least 2 turns of 90 degrees and 10' over an uneven surface), can go up and down 24 steps without using a handrail with independence, and can pick up attendant an object from the floor with independence. Patient is discharging from this facility today and will be discharged from PT at this time. Occupational Therapy No Skilled OT Needs ID'd PT Embedded Software Manager Goals Embedded Software Manager Goals PT Embedded Software Manager Goals Time Frame: Mar 27, 2020 Roll Left to Right (QC): 6 Sit to Lying (QC): 6 Lying-Sitting on Side/Bed(QC): 6 Sit to Stand (QC): 6 Chair/Wsp-jv-Lvswg Xfer(QC): 6 Car Transfer (QC): 6 Does the Patient Walk: Yes Walk 10 feet (QC): 6 Walk 10ft-Uneven Surface(QC): 6 Walk 50ft with 2 Turns (QC): 6 Walk 150 ft (QC): 6 Does the Pt use WC or Scooter?: No Wheel 50 feet with 2 turns (QC: 9 1 Step (curb) (QC): 6 4 Steps (QC): 6 12 Steps (QC): 6 Picking up an Object (QC): 5 OT Embedded Software Manager Goals Embedded Software Manager Goals Time Frame: Mar 29, 2020 Eating (QC): 6 Oral Hygiene (QC): 6 Shower/Bathe Self (QC): 6 Upper Body Dressing (QC): 6 Lower Body Dressing (QC): 6 On/Off Footwear (QC): 6 Toileting Hygiene (QC): 6 Toilet/Commode Transfer (QC): 6 Additional Goals: 1-Demonstrate ADL Tasks, 2-Verbalize Understanding, 3- ImproveStrength/Hailey 1=Demonstrate adherence to instructed precautions during ADL tasks. 2=Patient will verbalize/demonstrate understanding of assistive devices/modifications for ADL. 3=Patient will improve strength/tolerance for activity to enable patient to perform ADL's. HANG CHENG PT Mar 18, 2020 11:49
--- NOTE | 2020-03-18 14:01 | Therapy Team Discharge Summary ---
Therapy Discharge Summary Discharge Recommendations Date of Discharge Mar 18, 2020 at 10:50 Therapy D/C Recommendations: Home w/ Family Support Occupational Therapy Pt. seen in this facility to increase overall strength and independence. Pt. met all goals. Pt. is able to complete all ADLs with independence at discharge. Pt. discharging home with family. No further OT warranted at this time. No Skilled OT Needs ID'd PT Long-Term Goals Over Hauler Helper Goals PT Over Hauler Helper Goals Time Frame: Mar 27, 2020 Roll Left to Right (QC): 6 Sit to Lying (QC): 6 Lying-Sitting on Side/Bed(QC): 6 Sit to Stand (QC): 6 Chair/Xsm-oz-Ptltr Xfer(QC): 6 Car Transfer (QC): 6 Does the Patient Walk: Yes Walk 10 feet (QC): 6 Walk 10ft-Uneven Surface(QC): 6 Walk 50ft with 2 Turns (QC): 6 Walk 150 ft (QC): 6 Does the Pt use WC or Scooter?: No Wheel 50 feet with 2 turns (QC: 9 1 Step (curb) (QC): 6 4 Steps (QC): 6 12 Steps (QC): 6 Picking up an Object (QC): 5 OT Long-Term Goals Over Hauler Helper Goals Time Frame: Mar 29, 2020 Eating (QC): 6 (met) Oral Hygiene (QC): 6 (met) Shower/Bathe Self (QC): 6 (met) Upper Body Dressing (QC): 6 (met) Lower Body Dressing (QC): 6 (met) On/Off Footwear (QC): 6 (met) Toileting Hygiene (QC): 6 (met) Toilet/Commode Transfer (QC): 6 (met) Additional Goals: 1-Demonstrate ADL Tasks, 2-Verbalize Understanding, 3- ImproveStrength/Hailey 1=Demonstrate adherence to instructed precautions during ADL tasks. 2=Patient will verbalize/demonstrate understanding of assistive devices/modifications for ADL. 3=Patient will improve strength/tolerance for activity to enable patient to perform ADL's. GERSON YOUNG OT Mar 18, 2020 14:01
== END 2020-03-18 10:50 | disposition home or self-care (01) | DRG 149 ==
PROVIDERS: ADMIT Internal Medicine; ATTEND Internal Medicine
DX: H81.10 Benign paroxysmal vertigo, unspecified ear (principal); I69.351 Hemiplegia and hemiparesis following cerebral infarction affecting right dominant side; Z94.0 Kidney transplant status; F32.3 Major depressive disorder, single episode, severe with psychotic features; D84.9 Immunodeficiency, unspecified; R20.0 Anesthesia of skin; G40.909 Epilepsy, unspecified, not intractable, without status epilepticus; Z86.16 Personal history of COVID-19; R25.1 Tremor, unspecified; I12.9 Hypertensive chronic kidney disease with stage 1 through stage 4 chronic kidney disease, or unspecified chronic kidney disease; E11.22 Type 2 diabetes mellitus with diabetic chronic kidney disease; E11.65 Type 2 diabetes mellitus with hyperglycemia; N18.30 Chronic kidney disease, stage 3 unspecified; E78.5 Hyperlipidemia, unspecified; G47.33 Obstructive sleep apnea (adult) (pediatric); K21.9 Gastro-esophageal reflux disease without esophagitis; B02.9 Zoster without complications; Z79.82 Long term (current) use of aspirin; Z88.6 Allergy status to analgesic agent; Z88.2 Allergy status to sulfonamides; Z87.01 Personal history of pneumonia (recurrent)
CPT/HCPCS: 36415; 80053; 82962; 85025